=== PATIENT | female | born 1935 | race African-American/Black ===

== ENCOUNTER 2016-11-26 11:59 | Outpatient (CLI) | payer BC ==
[2016-11-26] MEDS ORDERED: NORMAL SALINE 250 ML IV PRN (12:50)
[2016-11-26] MEDS ORDERED: ONDANSETRON HCL/PF 16 MG, DEXAMETHASONE SOD PHOSPHATE 10 MG in NORMAL SALINE 50 ML IV PRN (12:51)
[2016-11-26] MEDS ORDERED: FAMOTIDINE INJ/PF 20 MG/2 ML SDV IV PRN (12:57)
[2016-11-26] MEDS ORDERED: DIPHENHYDRAMINE HCL 50 MG/ML VIAL IV PRN (12:57)
[2016-11-26] MEDS ORDERED: PACLITAXEL SEMI SYNTHETIC IV PRN (13:00)
[2016-11-26] MEDS ORDERED: NORMAL SALINE IV PRN (13:00)
[2016-11-26 14:49] VITALS: BP 119/57
== END 2016-11-26 15:56 | disposition home or self-care (01) ==
LOC: II 11:59 → 5TH 14:28 → II 15:56
PROVIDERS: ATTEND Specialist
PROC: 3E04305 Introduction of Other Antineoplastic into Central Vein, Percutaneous Approach (ICD-10-PCS; principal; 2016-11-26)
PROC: 3E043GC Introduction of Other Therapeutic Substance into Central Vein, Percutaneous Approach (ICD-10-PCS; 2016-11-26)
DX: Z51.11 Encounter for antineoplastic chemotherapy (principal); C34.10 Malignant neoplasm of upper lobe, unspecified bronchus or lung
CPT/HCPCS: 96413; 96367; 96375; J1200; J2405; J7050; J9267; S0028; J1100

== ENCOUNTER 2016-12-03 11:18 | Outpatient (CLI) | payer BC ==
[~2016-12-03 11:18] MED LIST: DIPHENHYDRAMINE HCL 50 MG/ML VIAL IV PRN; FAMOTIDINE INJ/PF 20 MG/2 ML SDV IV PRN; NORMAL SALINE 250 ML IV PRN; NORMAL SALINE IV PRN; ONDANSETRON HCL/PF 16 MG, DEXAMETHASONE SOD PHOSPHATE 10 MG in NORMAL SALINE 50 ML IV PRN; PACLITAXEL SEMI SYNTHETIC IV PRN
[2016-12-03 13:10] VITALS: BP 140/62
== END 2016-12-03 14:47 | disposition home or self-care (01) ==
LOC: II 11:18 → 5TH 11:19 → II 14:47
PROVIDERS: ATTEND Specialist
PROC: 3E03305 Introduction of Other Antineoplastic into Peripheral Vein, Percutaneous Approach (ICD-10-PCS; principal; 2016-12-03)
PROC: 3E033GC Introduction of Other Therapeutic Substance into Peripheral Vein, Percutaneous Approach (ICD-10-PCS; 2016-12-03)
DX: Z51.11 Encounter for antineoplastic chemotherapy (principal); C34.10 Malignant neoplasm of upper lobe, unspecified bronchus or lung
CPT/HCPCS: 96413; 96367; 96375; J1200; J2405; J7050; J9267; S0028; J1100

== ENCOUNTER 2016-12-10 11:56 | Outpatient (CLI) | payer BC ==
[2016-12-10 12:25] VITALS: BP 124/63
== END 2016-12-10 14:12 | disposition home or self-care (01) ==
LOC: II 11:56 → 5TH 11:57 → II 14:12
PROVIDERS: ATTEND Internal Medicine
PROC: 3E03305 Introduction of Other Antineoplastic into Peripheral Vein, Percutaneous Approach (ICD-10-PCS; principal; 2016-12-10)
PROC: 3E033GC Introduction of Other Therapeutic Substance into Peripheral Vein, Percutaneous Approach (ICD-10-PCS; 2016-12-10)
PROC: 3E0337Z Introduction of Electrolytic and Water Balance Substance into Peripheral Vein, Percutaneous Approach (ICD-10-PCS; 2016-12-10)
DX: C34.10 Malignant neoplasm of upper lobe, unspecified bronchus or lung (principal); Z51.11 Encounter for antineoplastic chemotherapy
CPT/HCPCS: 96413; 96367; 96375; 96361; J1200; J2405; J7050; J9267; S0028; J1100; 96376

== ENCOUNTER 2016-12-24 11:11 | Outpatient (CLI) | payer BC ==
[2016-12-24 12:37] VITALS: BP 117/68
== END 2016-12-24 13:21 | disposition home or self-care (01) ==
LOC: II 11:11 → 5TH 11:13 → II 13:21
PROVIDERS: ATTEND Specialist
DX: Z51.11 Encounter for antineoplastic chemotherapy (principal); C34.10 Malignant neoplasm of upper lobe, unspecified bronchus or lung
CPT/HCPCS: 96413; 96367; 96375; J1200; J2405; J7050; J9267; S0028; J1100

== ENCOUNTER 2017-01-20 23:32 | Emergency (ER) | payer BC ==
[2017-01-21] MEDS ORDERED: ONDANSETRON HCL INJ/PF 4 MG/2 ML SDV IV ONE (00:28)
[2017-01-21] MEDS ORDERED: NORMAL SALINE 1000 ML 1,000 ML IV ONE (00:28)
[2017-01-21 01:21] LABS: ALANINE AMINOTRANSFERASE 22 U/L (9-52); ALBUMIN 3.7 g/dL (3.5-5.0); ALKALINE PHOSPHATASE 81 U/L (38-126); ANION GAP 13 (5-19); ASPARTATE AMINO TRANSFERASE 20 U/L (14-36); BILIRUBIN,TOTAL 0.5 mg/dL (0.2-1.3); BLOOD UREA NITROGEN 14 mg/dL (7-20); CALCIUM 9.4 mg/dL (8.4-10.2); CARBON DIOXIDE 31 mmol/L (22-30); CHLORIDE 102 mmol/L (98-107); CREATININE RESULT 1.11 mg/dL (0.52-1.25); GLUCOSE 157 mg/dL (75-110); LIPASE 85.9 U/L (23-300); POTASSIUM 4.1 mmol/L (3.6-5.0); SODIUM 145.7 mmol/L (137-145); TOTAL PROTEIN 7.1 g/dL (6.3-8.2)
[2017-01-21 01:35] LABS: ABSOLUTE LYMPHOCYTES (AUTO) 0.6 10^3/uL (0.5-4.7); ABSOLUTE MONOCYTES (AUTO) 0.5 10^3/uL (0.1-1.4); ABSOLUTE NEUT (AUTO) 3.5 10^3/uL (1.7-8.2); BASOPHILS % (AUTO) 0.8 % (0-2); EOSINOPHILS % (AUTO) 0.5 % (0-6); HEMATOCRIT 34.9 % (36.0-47.0); HEMOGLOBIN 10.2 g/dL (12.0-15.5); HGB HCT DIFFERENCE -4.3; LYMPHOCYTES % (AUTO) 12.7 % (13-45); MEAN CORPUSCULAR HEMOGLOBIN 20.4 pg (27.0-33.4); MEAN CORPUSCULAR HGB CONC 29.2 g/dL (32.0-36.0); MEAN CORPUSCULAR VOLUME 70 fl (80-97); MONOCYTES % (AUTO) 10.6 % (3-13); RED CELL DISTRIBUTION WIDTH 18.7 % (11.5-14.0); SEGMENTED NEUTROPHILS % (AUTO) 75.4 % (42-78); WHITE BLOOD COUNT 4.6 10^3/uL (4.0-10.5)
[2017-01-21] MEDS ORDERED: HYDROCODONE/ACETAMINOPHEN 5-325 MG 6 TAB/DSPK PO PRN (02:14)
[2017-01-21] MEDS ORDERED: HYDROCODONE/ACETAMINOPHEN 5-325 MG TABLET PO ONE (02:14)
[2017-01-21] MEDS ORDERED: MORPHINE SULFATE 10 MG/ML INJ IV PRN (02:15)
--- NOTE | 2017-01-21 02:32 | ER Document Report ---
ED General - General Chief Complaint: Abdominal Pain Stated Complaint: POSSIBLE ALLERGIC REACTION POST CHEMO Notes: Patient is an 81-year-old female with past medical history of stage IV lung cancer on active chemotherapy at this time presents with 6 weeks of progressively worsening abdominal pain, nausea and lack of appetite. Shehas also had nonbilious vomiting. The pain in her abdomen is described as a cramping, dull, aching pain. It has been getting worsens onset. Nothing improves or worsens the pain. States the nausea and vomiting do prevent her from eating. She has been trying Zofran and Phenergan at home with no improvement of her nausea and she has not tried anything for relief of her pain. She has an appointment tomorrow with her oncologist TRAVEL OUTSIDE OF THE [place] IN LAST 30 DAYS: No - Related Data Allergies/Adverse Reactions: iron [Iron] Allergy (Severe, Verified 06/04/16 08:49) DIFFICULTY BREATHING WITH IV IRON metformin Allergy (Unknown, Unverified 11/26/16 12:48) Iodinated Contrast Media - Oral and Allergy (Verified 01/21/17 01:41) carboplatin Adverse Reaction (Unknown, Unverified 11/26/16 12:49) Past Medical History - General Information source: Patient - Social History Smoking Status: Never Smoker Frequency of alcohol use: None Drug Abuse: None Lives with: Family Family History: Reviewed & Not Pertinent Patient has suicidal ideation: No Patient has homicidal ideation: No - Past Medical History Cardiac Medical History: Reports: Hx Hypertension Denies: Hx Coronary Artery Disease, Hx Heart Attack Pulmonary Medical History: Reports: Hx COPD, Hx Pneumonia Denies: Hx Asthma, Hx Bronchitis Neurological Medical History: Denies: Hx Cerebrovascular Accident, Hx Seizures Endocrine Medical History: Reports: Hx Diabetes Mellitus Type 2 Renal/ Medical History: Denies: Hx Peritoneal Dialysis Musculoskeltal Medical History: Reports Hx Arthritis - arms Past Surgical History: Reports: Hx Appendectomy, Hx Gynecologic Surgery - ectopic, Hx Orthopedic Surgery - left handed trigger finger - Immunizations Hx Diphtheria, Pertussis, Tetanus Vaccination: Yes Review of Systems - Review of Systems Notes: Constitutional: Negative for fever. HENT: Negative for sore throat. Eyes: Negative for visual changes. Cardiovascular: Negative for chest pain. Respiratory: Negative for shortness of breath. Gastrointestinal: Positive for abdominal pain nausea and vomiting Genitourinary: Negative for dysuria. Musculoskeletal: Negative for back pain. Skin: Negative for rash. Neurological: Negative for headaches, weakness or numbness. 10 point ROS negative except as marked above and in HPI. Physical Exam - Vital signs Vitals: Pulse Resp BP Pulse Ox 104 H 16 156/76 H 94 01/21/17 00:00 01/21/17 00:00 01/21/17 00:00 01/21/17 00:00 Interpretation: Hypertensive Notes: PHYSICAL EXAMINATION: GENERAL: Chronically ill in appearance but in no acute distress HEAD: Atraumatic, normocephalic. EYES: Pupils equal round and reactive to light, extraocular movements intact, sclera anicteric, conjunctiva are normal. ENT: nares patent, oropharynx clear without exudates. Moderately dry mucous membranes. NECK: Normal range of motion, supple without lymphadenopathy LUNGS: Breath sounds clear to auscultation bilaterally and equal. No wheezes rales or rhonchi. HEART: Regular rate and rhythm without murmurs ABDOMEN: Soft, diffuse mild tenderness worse in the epigastrium, normoactive bowel sounds. No guarding, no rebound. No masses appreciated. EXTREMITIES: Normal range of motion, no pitting or edema. No cyanosis. NEUROLOGICAL: No focal neurological deficits. Moves all extremities spontaneously and on command. PSYCH: Normal mood, normal affect. SKIN: Warm, Dry, normal turgor, no rashes or lesions noted. Course - Re-evaluation Re-evalutation: 01/21/17 02:27 Patient presents with diffuse, progressively worsening abdominal pain over the last 6 weeks has become increasing worse in the last 2 weeks. She is recent start of multiple new chemotherapy agents and I suspect this may be playing into her abdominal pain. She does have diffuse abdominal pain on exam that is most prominent in the epigastrium. CT scan of the abdomen and pelvis obtained given patient's clinical history and unfortunately does demonstrate new, larger lesions in her liver, left kidney and bilateral lungs. I discussed this case with the oncologist regional operations manager Dr. Yeboah and patient will see her oncologist Dr. Brown in the morning. Have discussed the findings of the CT scan with the patient at the bedside at length. I have began symptomatic control here in the emergency department with morphine and will send home with [place] dispense pack. At this time will discharge with return precautions and follow-up recommendations. Verbal discharge instructions given a the bedside and opportunity for questions given. Medication warnings reviewed. Patient is in agreement with this plan and has verbalized understanding of return precautions and the need for oncology follow-up in the morning as scheduled - Vital Signs Vital signs: Temp Pulse Resp BP Pulse Ox 97.4 F 104 H 16 156/76 H 94 01/21/17 00:12 01/21/17 00:00 01/21/17 00:00 01/21/17 00:00 01/21/17 00:00 - Laboratory Result Diagrams: 01/21/17 00:54 01/21/17 00:54 Laboratory results interpreted by me: 01/21/17 01/21/17 00:54 00:54 Hgb 10.2 L Hct 34.9 L MCV 70 L MCH 20.4 L MCHC 29.2 L RDW 18.7 H Lymphocytes % 12.7 L Sodium 145.7 H Carbon Dioxide 31 H Est GFR ( Amer) 57 L Est GFR (Non-Af Amer) 47 L Glucose 157 H - Diagnostic Test Radiology reviewed: Reports reviewed Discharge - Discharge Clinical Impression: Abdominal pain Qualifiers: Abdominal location: generalized Qualified Code(s): R10.84 - Generalized abdominal pain Metastatic primary lung cancer Qualifiers: Laterality: unspecified laterality Qualified Code(s): C34.90 - Malignant neoplasm of unspecified part of unspecified bronchus or lung Condition: Fair Disposition: HOME, SELF-CARE Additional Instructions: Please follow-up with your primary oncologist in the morning as scheduled. You can take the [place] 1-2 tabs as needed for pain. Return for any new or worsening symptoms including persistent vomiting, fever, passing out, or worsening pain.
[2017-01-21] MEDS ORDERED: MORPHINE SULFATE 10 MG/ML INJ IV ONE (02:45)
[2017-01-21] MEDS ORDERED: METOCLOPRAMIDE HCL INJ/PF 10 MG/2 ML SDV IV ONE (02:57)
[2017-01-21 04:45] VITALS: BP 127/57
== END 2017-01-21 04:35 | disposition home or self-care (01) ==
LOC: ER 23:32
DX: R10.84 Generalized abdominal pain (principal); C34.90 Malignant neoplasm of unspecified part of unspecified bronchus or lung; R10.9 Unspecified abdominal pain; R11.0 Nausea; R63.0 Anorexia
CPT/HCPCS: 99284; 96361; 96374; 96375; 36415; 83605; 83690; 85025; 80053; 74176; J2765; J2270; J7030

== ENCOUNTER 2017-01-25 20:32 | Emergency (ER) | payer BC ==
[2017-01-25] MEDS ORDERED: ONDANSETRON 4 MG TAB.RAPDIS PO ONE ×2 (21:08→21:09)
[2017-01-25] MEDS ORDERED: ACETAMINOPHEN 325 MG TABLET PO ONE (21:08)
--- NOTE | 2017-01-25 21:08 | ER Document Report ---
ED Medical Screen (RME) - General Stated Complaint: NAUESA ABDONIMAL PAIN Time seen by provider: 21:05 Mode of Arrival: Wheelchair Information source: Patient Notes: 81-year-old female presents to ED for nausea, vomiting and pain in her abdomen. She states she has stage IV cancer and lung kidney and liver and is on chemotherapy. She received chemotherapy last on and she gets it every . She states she was in the emergency room last Wednesday for similar symptoms. She states she has vomited 2 today. Patient states when she takes the nausea medicine actually makes the pain and the nausea worse. I have greeted and performed a rapid initial assessment of this patient. A comprehensive ED assessment and evaluation of the patient, analysis of test results and completion of medical decision making process will be conducted by an additional ED providers. TRAVEL OUTSIDE OF THE [place] IN LAST 30 DAYS: No - Related Data Allergies/Adverse Reactions: iron [Iron] Allergy (Severe, Verified 06/04/16 08:49) DIFFICULTY BREATHING WITH IV IRON metformin Allergy (Unknown, Unverified 11/26/16 12:48) Iodinated Contrast Media - Oral and Allergy (Verified 01/21/17 01:41) carboplatin Adverse Reaction (Unknown, Unverified 11/26/16 12:49) Past Medical History - Past Medical History Cardiac Medical History: Reports: Hx Hypertension Denies: Hx Coronary Artery Disease, Hx Heart Attack Pulmonary Medical History: Reports: Hx COPD, Hx Pneumonia Denies: Hx Asthma, Hx Bronchitis Neurological Medical History: Denies: Hx Cerebrovascular Accident, Hx Seizures Endocrine Medical History: Reports: Hx Diabetes Mellitus Type 2 Renal/ Medical History: Denies: Hx Peritoneal Dialysis Musculoskeltal Medical History: Reports Hx Arthritis - arms Past Surgical History: Reports: Hx Appendectomy, Hx Gynecologic Surgery - ectopic, Hx Orthopedic Surgery - left handed trigger finger - Immunizations Hx Diphtheria, Pertussis, Tetanus Vaccination: Yes Physical Exam - Vital signs Vitals: Temp Pulse Resp BP Pulse Ox 98.2 F 103 H 20 147/70 H 94 01/25/17 20:56 01/25/17 20:56 01/25/17 20:56 01/25/17 20:56 01/25/17 20:56 Course - Vital Signs Vital signs: Temp Pulse Resp BP Pulse Ox 98.2 F 103 H 20 147/70 H 94 01/25/17 20:56 01/25/17 20:56 01/25/17 20:56 01/25/17 20:56 01/25/17 20:56
[2017-01-25 22:30] LABS: ABSOLUTE LYMPHOCYTES (AUTO) 0.8 10^3/uL (0.5-4.7); ABSOLUTE MONOCYTES (AUTO) 0.6 10^3/uL (0.1-1.4); EOSINOPHILS % (AUTO) 0.5 % (0-6); HEMATOCRIT 35.5 % (36.0-47.0); HEMOGLOBIN 10.6 g/dL (12.0-15.5); HGB HCT DIFFERENCE -3.7; LYMPHOCYTES % (AUTO) 17.7 % (13-45); MEAN CORPUSCULAR HEMOGLOBIN 21.1 pg (27.0-33.4); MEAN CORPUSCULAR VOLUME 70 fl (80-97); MONOCYTES % (AUTO) 12.4 % (3-13); RED BLOOD COUNT 5.05 10^6/uL (3.72-5.28); RED CELL DISTRIBUTION WIDTH 19.1 % (11.5-14.0); SEGMENTED NEUTROPHILS % (AUTO) 68.4 % (42-78); WHITE BLOOD COUNT 4.5 10^3/uL (4.0-10.5)
[2017-01-25 22:54] LABS: ALANINE AMINOTRANSFERASE 24 U/L (9-52); ALBUMIN 3.6 g/dL (3.5-5.0); ALKALINE PHOSPHATASE 79 U/L (38-126); ANION GAP 12 (5-19); ASPARTATE AMINO TRANSFERASE 16 U/L (14-36); BILIRUBIN,DIRECT 0.2 mg/dL (0.0-0.4); BILIRUBIN,TOTAL 0.5 mg/dL (0.2-1.3); BLOOD UREA NITROGEN 12 mg/dL (7-20); CALCIUM 9.7 mg/dL (8.4-10.2); CARBON DIOXIDE 30 mmol/L (22-30); CHLORIDE 100 mmol/L (98-107); CREATININE RESULT 0.82 mg/dL (0.52-1.25); GLUCOSE 143 mg/dL (75-110); POTASSIUM 5.6 mmol/L (3.6-5.0); SODIUM 142.4 mmol/L (137-145); TOTAL PROTEIN 6.3 g/dL (6.3-8.2)
[2017-01-25] MEDS ORDERED: ONDANSETRON HCL INJ/PF 4 MG/2 ML SDV IV ONE (23:01)
[2017-01-25] MEDS ORDERED: NORMAL SALINE 1000 ML 1,000 ML IV ONE (23:01)
[2017-01-26] MEDS ORDERED: FAMOTIDINE INJ/PF 20 MG/2 ML SDV IV ONE (01:34)
[2017-01-26] MEDS ORDERED: FENTANYL CITRATE INJ/PF 100 MCG/2 ML AMPUL IV ONE (01:34)
--- NOTE | 2017-01-26 01:37 | ER Document Report ---
ED General - General Chief Complaint: Nausea/Vomiting Stated Complaint: NAUESA ABDONIMAL PAIN Mode of Arrival: Wheelchair Notes: Patient is an 81-year-old female with stage IV lung cancer metastatic to liver and left kidney who presents with ongoing vomiting and abdominal pain. I saw this patient approximately one week ago with the same symptoms at that time. She has followed up with her oncologist who apparently change the chemotherapy agent that she is taking but the patient states that this has not resolved her abdominal pain and vomiting. She's been trying Zofran and Phenergan at home without improvement. Nothing worsens her symptoms. States she's not really been able to tolerate any food for the past several weeks. Does describe the pain in her abdomen as being a diffuse, mild, cramping pain. She has not had a fever. She continues to have bowel movements. TRAVEL OUTSIDE OF THE [place] IN LAST 30 DAYS: No - Related Data Allergies/Adverse Reactions: iron [Iron] Allergy (Severe, Verified 06/04/16 08:49) DIFFICULTY BREATHING WITH IV IRON metformin Allergy (Unknown, Unverified 11/26/16 12:48) Iodinated Contrast Media - Oral and Allergy (Verified 01/21/17 01:41) carboplatin Adverse Reaction (Unknown, Unverified 11/26/16 12:49) Past Medical History - General Information source: Patient - Social History Smoking Status: Never Smoker Chew tobacco use (# tins/day): No Frequency of alcohol use: None Drug Abuse: None Lives with: Family Family History: Reviewed & Not Pertinent Patient has suicidal ideation: No Patient has homicidal ideation: No - Past Medical History Cardiac Medical History: Reports: Hx Hypertension Denies: Hx Coronary Artery Disease, Hx Heart Attack Pulmonary Medical History: Reports: Hx COPD, Hx Pneumonia Denies: Hx Asthma, Hx Bronchitis Neurological Medical History: Denies: Hx Cerebrovascular Accident, Hx Seizures Endocrine Medical History: Reports: Hx Diabetes Mellitus Type 2 Renal/ Medical History: Denies: Hx Peritoneal Dialysis Musculoskeltal Medical History: Reports Hx Arthritis - arms Past Surgical History: Reports: Hx Appendectomy, Hx Gynecologic Surgery - ectopic, Hx Orthopedic Surgery - left handed trigger finger - Immunizations Hx Diphtheria, Pertussis, Tetanus Vaccination: Yes Review of Systems - Review of Systems Notes: Constitutional: Negative for fever. HENT: Negative for sore throat. Eyes: Negative for visual changes. Cardiovascular: Negative for chest pain. Respiratory: Negative for shortness of breath. Gastrointestinal: Positive for abdominal pain and vomiting. Genitourinary: Negative for dysuria. Musculoskeletal: Negative for back pain. Skin: Negative for rash. Neurological: Negative for headaches, weakness or numbness. 10 point ROS negative except as marked above and in HPI. Physical Exam - Vital signs Vitals: Temp Pulse Resp BP Pulse Ox 98.2 F 103 H 20 147/70 H 94 01/25/17 20:56 01/25/17 20:56 01/25/17 20:56 01/25/17 20:56 01/25/17 20:56 Interpretation: Hypertensive, Tachycardic Notes: PHYSICAL EXAMINATION: GENERAL: Frail, appears uncomfortable but in no acute distress HEAD: Atraumatic, normocephalic. EYES: Pupils equal round and reactive to light, extraocular movements intact, sclera anicteric, conjunctiva are normal. ENT: nares patent, oropharynx clear without exudates. Moderately dry mucous membranes. NECK: Normal range of motion, supple without lymphadenopathy LUNGS: Breath sounds clear to auscultation bilaterally and equal. No wheezes rales or rhonchi. HEART: Regular rate and rhythm without murmurs ABDOMEN: Soft, diffuse mild tenderness without rebound or guarding. Bowel sounds present. EXTREMITIES: Normal range of motion, no pitting or edema. No cyanosis. NEUROLOGICAL: No focal neurological deficits. Moves all extremities spontaneously and on command. PSYCH: Normal mood, normal affect. SKIN: Warm, Dry, normal turgor, no rashes or lesions noted. Course - Re-evaluation Re-evalutation: 01/26/17 02:51 Patient presents with ongoing nausea, vomiting and diffuse abdominal pain in the setting of metastatic lung cancer on chemotherapy. Again I continue to believe that patient's symptoms are likely secondary to her chemotherapy. I continue to have significant concerns about ongoing use of chemotherapeutic agents in this patient who has a very poor prognosis given her age with a stage IV metastatic cancer that is progressing despite chemotherapy. Her abdominal exam today is unchanged from prior and I do not believe repeat CT imaging is indicated today. Her labs are unremarkable with the exception of mild hyperkalemia. I have again provided symptomatic control here today with rectal Phenergan, oral [place], and IV fluids. Have encouraged the family to follow closely with her primary oncologist regarding goals of care as well as consideration of palliative management. - Vital Signs Vital signs: Temp Pulse Resp BP Pulse Ox 98.2 F 103 H 20 147/70 H 94 01/25/17 20:56 01/25/17 20:56 01/25/17 20:56 01/25/17 20:56 01/25/17 20:56 - Laboratory Result Diagrams: 01/25/17 22:10 01/25/17 22:10 Laboratory results interpreted by me: 01/25/17 01/25/17 22:10 22:10 Hgb 10.6 L Hct 35.5 L MCV 70 L MCH 21.1 L MCHC 30.0 L RDW 19.1 H Plt Count 461 H Potassium 5.6 H Glucose 143 H Discharge - Discharge Clinical Impression: Metastatic primary lung cancer Qualifiers: Laterality: unspecified laterality Qualified Code(s): C34.90 - Malignant neoplasm of unspecified part of unspecified bronchus or lung Abdominal pain Qualifiers: Abdominal location: generalized Qualified Code(s): R10.84 - Generalized abdominal pain Condition: Fair Disposition: HOME, SELF-CARE Additional Instructions: Please discuss goals of care with your oncologist. Return for any new or worsening symptoms. Please also follow up for repeat of your potassium level which was mildly elevated today. You can use the [place] that is prescribed today 1-2 tablets every 4 hours as needed for pain. Please also start taking famotidine 40 mg in the morning and 40 mg at night. This should hopefully help to calm your stomach. This medicine can be purchased [id number]. You can use the rectal Phenergan was prescribed today for nausea that is so severe you cannot take oral medicines. Prescriptions: Hydrocodone/Acetaminophen [[place] 5-325 mg Tablet] 1 - 2 tab PO Q4HP PRN #30 tablet PRN Reason: Promethazine HCl [Phenergan 25 mg Supp.rect] 25 mg ID Q4HP PRN #12 supp.rect PRN Reason: Referrals: KELLI RANDLE MD [Primary Care Provider] - Follow up tomorrow
[2017-01-26 03:24] VITALS: BP 122/55
== END 2017-01-26 03:25 | disposition home or self-care (01) ==
LOC: ER 20:32
DX: C34.90 Malignant neoplasm of unspecified part of unspecified bronchus or lung (principal); C78.7 Secondary malignant neoplasm of liver and intrahepatic bile duct; C79.02 Secondary malignant neoplasm of left kidney and renal pelvis; R10.84 Generalized abdominal pain; R11.2 Nausea with vomiting, unspecified; Z79.899 Other long term (current) drug therapy
CPT/HCPCS: 99283; 96361; 96374; 36415; 85025; 80053; S0119; J3010; J2405; J7030; S0028

== ENCOUNTER 2017-02-24 08:36 | Emergency (ER) | payer BC ==
[2017-02-24 10:01] LABS: ABSOLUTE BASOPHILS # (AUTO) 0.1 10^3/uL (0.0-0.2); ABSOLUTE LYMPHOCYTES (AUTO) 0.6 10^3/uL (0.5-4.7); ABSOLUTE MONOCYTES (AUTO) 0.8 10^3/uL (0.1-1.4); ABSOLUTE NEUT (AUTO) 5.6 10^3/uL (1.7-8.2); BASOPHILS % (AUTO) 1.4 % (0-2); EOSINOPHILS % (AUTO) 0.1 % (0-6); HEMATOCRIT 36.6 % (36.0-47.0); HEMOGLOBIN 11.1 g/dL (12.0-15.5); HGB HCT DIFFERENCE -3.3; LYMPHOCYTES % (AUTO) 8.1 % (13-45); MEAN CORPUSCULAR HEMOGLOBIN 21.3 pg (27.0-33.4); MEAN CORPUSCULAR HGB CONC 30.2 g/dL (32.0-36.0); MEAN CORPUSCULAR VOLUME 71 fl (80-97); MONOCYTES % (AUTO) 10.7 % (3-13); RED BLOOD COUNT 5.19 10^6/uL (3.72-5.28); SEGMENTED NEUTROPHILS % (AUTO) 79.7 % (42-78)
[2017-02-24 10:16] LABS: ALANINE AMINOTRANSFERASE 24 U/L (9-52); ALBUMIN 3.9 g/dL (3.5-5.0); ALKALINE PHOSPHATASE 74 U/L (38-126); ANION GAP 15 (5-19); ASPARTATE AMINO TRANSFERASE 15 U/L (14-36); BILIRUBIN,DIRECT 0.5 mg/dL (0.0-0.4); BILIRUBIN,TOTAL 0.9 mg/dL (0.2-1.3); BLOOD UREA NITROGEN 14 mg/dL (7-20); CALCIUM 9.7 mg/dL (8.4-10.2); CARBON DIOXIDE 34 mmol/L (22-30); CHLORIDE 97 mmol/L (98-107); CREATININE RESULT 0.95 mg/dL (0.52-1.25); GLUCOSE 176 mg/dL (75-110); POTASSIUM 4.4 mmol/L (3.6-5.0); TOTAL PROTEIN 6.7 g/dL (6.3-8.2)
--- NOTE | 2017-02-24 11:43 | ER Document Report ---
ED General - General Chief Complaint: Vomiting/Diarrhea Stated Complaint: SORE THROAT Mode of Arrival: Ambulatory Information source: Patient Notes: 81 yr old female hx of metastatic lung ca presents with complaints of coughing and vomiting blood of a few duay duration. pt admits to sob, denies any fevers or chills. TRAVEL OUTSIDE OF THE [place] IN LAST 30 DAYS: No - HPI Onset: Just prior to arrival Onset/Duration: Sudden Quality of pain: Achy Severity: Mild Pain Level: 1 Associated symptoms: Productive cough, Nausea, Vomiting, Other Exacerbated by: Denies Relieved by: Denies Similar symptoms previously: No Recently seen / treated by doctor: No - Related Data Allergies/Adverse Reactions: iron [Iron] Allergy (Severe, Verified 02/24/17 08:46) DIFFICULTY BREATHING WITH IV IRON metformin Allergy (Unknown, Verified 02/24/17 08:46) Iodinated Contrast Media - Oral and Allergy (Verified 02/24/17 08:46) carboplatin Adverse Reaction (Unknown, Verified 02/24/17 08:46) Past Medical History - Social History Smoking Status: Former Smoker Cigarette use (# per day): No Chew tobacco use (# tins/day): No Smoking Education Provided: No Frequency of alcohol use: None Drug Abuse: None Family History: Reviewed & Not Pertinent Patient has suicidal ideation: No Patient has homicidal ideation: No - Past Medical History Cardiac Medical History: Reports: Hx Hypertension Denies: Hx Coronary Artery Disease, Hx Heart Attack Pulmonary Medical History: Reports: Hx COPD, Hx Pneumonia Denies: Hx Asthma, Hx Bronchitis Neurological Medical History: Denies: Hx Cerebrovascular Accident, Hx Seizures Endocrine Medical History: Reports: Hx Diabetes Mellitus Type 2 Renal/ Medical History: Denies: Hx Peritoneal Dialysis Musculoskeltal Medical History: Reports Hx Arthritis - arms Past Surgical History: Reports: Hx Appendectomy, Hx Gynecologic Surgery - ectopic, Hx Orthopedic Surgery - left handed trigger finger - Immunizations Hx Diphtheria, Pertussis, Tetanus Vaccination: No Review of Systems - Review of Systems Notes: REVIEW OF SYSTEMS: CONSTITUTIONAL : Denies fever, chills, or sweats. Denies recent illness. EENT: Denies eye, ear, throat, or mouth pain or symptoms. Denies nasal or sinus congestion or discharge. Denies throat, tongue, or mouth swelling or difficulty swallowing. CARDIOVASCULAR: Denies chest pain. Denies palpitations or racing or irregular heart beat. Denies ankle edema. RESPIRATORY: Admits to coughing blood GASTROINTESTINAL: Admits to vomiting blood GENITOURINARY: Denies difficulty urinating, painful urination, burning, frequency, blood in urine, or discharge. FEMALE GENITOURINARY: Denies vaginal bleeding, heavy or abnormal periods, irregular periods. Denies vaginal discharge or odor. MUSCULOSKELETAL: Denies back or neck pain or stiffness. Denies joint pain or swelling. SKIN: Denies rash, lesions or sores. HEMATOLOGIC : Denies easy bruising or bleeding. LYMPHATIC: Denies swollen, enlarged glands. NEUROLOGICAL: Denies confusion or altered mental status. Denies passing out or loss of consciousness. Denies dizziness or lightheadedness. Denies headache. Denies weakness or paralysis or loss of use of either side. Denies problems with gait or speech. Denies sensory loss, numbness, or tingling. Denies seizures. PSYCHIATRIC: Denies anxiety or stress. Denies depression, suicidal ideation, or homicidal ideation. ALL OTHER SYSTEMS REVIEWED AND NEGATIVE. Dictation was performed using [employer] voice recognition software PHYSICAL EXAMINATION: GENERAL: Well-appearing, well-nourished and in no acute distress. HEAD: Atraumatic, normocephalic. EYES: Pupils equal round and reactive to light, extraocular movements intact, conjunctiva are normal. ENT: Nares patent, oropharynx clear without exudates. Moist mucous membranes. NECK: Normal range of motion, supple without lymphadenopathy LUNGS: Coarse wheezing all throughout HEART: Tachycardic ABDOMEN: Soft, nontender, nondistended abdomen. No guarding, no rebound. No masses appreciated. Female : deferred Musculoskeletal: Normal range of motion, no pitting or edema. No cyanosis. NEUROLOGICAL: Cranial nerves grossly intact. Normal speech, normal gait. Normal sensory, motor exams PSYCH: Normal mood, normal affect. SKIN: Warm, Dry, normal turgor, no rashes or lesions noted. Physical Exam - Vital signs Vitals: Temp Pulse Resp BP Pulse Ox 98.1 F 121 H 20 149/76 H 95 02/24/17 08:46 02/24/17 08:46 02/24/17 08:46 02/24/17 08:46 02/24/17 08:46 Course - Re-evaluation Re-evalutation: 02/24/17 11:43 Chest x-ray notes pulmonary nodule, 04/19/17 13:33 vq was negative, hemoccult was negative , labs otherwise note no signigcant abnormality 02/24/17 13:[address] Brown, she notes that the tachycardia is chronic for the patient therefore i [facility] home to follow up i [facility] office tomorrow After performing a Medical Screening Examination, I estimate there is LOW risk for ACUTE CORONARY SYNDROME, RESPIRATORY FAILURE, SEPSIS OR MENINGITIS, thus I consider the discharge disposition reasonable. I have reevaluated this patient multiple times and no significant life threatening changes are noted. The patient and I have discussed the diagnosis and risks, and we agree with discharging home with close follow-up. We also discussed returning to the Emergency Department immediately if new or worsening symptoms occur. We have discussed the symptoms which are most concerning (e.g., changing or worsening pain, trouble swallowing or breathing, neck stiffness, fever) that necessitate immediate return. - Vital Signs Vital signs: Temp Pulse Resp BP Pulse Ox 98.1 F 118 H 20 149/76 H 95 02/24/17 08:47 02/24/17 08:47 02/24/17 08:47 02/24/17 08:47 02/24/17 08:47 - Laboratory Result Diagrams: 02/24/17 09:40 02/24/17 09:40 Laboratory results interpreted by me: 02/24/17 02/24/17 09:40 09:40 Hgb 11.1 L MCV 71 L MCH 21.3 L MCHC 30.2 L RDW 21.0 H Seg Neutrophils % 79.7 H Lymphocytes % 8.1 L Sodium 146.0 H Chloride 97 L Carbon Dioxide 34 H Est GFR (Non-Af Amer) 56 L Glucose 176 H Direct Bilirubin 0.5 H - Diagnostic Test Radiology reviewed: Image reviewed, Reports reviewed Discharge - Discharge Clinical Impression: Hemoptysis, tachycardic Lung cancer Qualifiers: Laterality: right Lung location: upper lobe of lung Qualified Code(s): C34.11 - Malignant neoplasm of upper lobe, right bronchus or lung Condition: Fair Disposition: HOME, SELF-CARE Instructions: Hemoptysis ([facility]) Referrals: KELLI BROWN MD [Primary Care Provider] - Follow up tomorrow
[2017-02-24] MEDS ORDERED: MORPHINE SULFATE 10 MG/ML INJ IV ONE (13:42)
[2017-02-24] MEDS ORDERED: METOCLOPRAMIDE HCL INJ/PF 10 MG/2 ML SDV IV ONE (13:42)
[2017-02-24 14:07] VITALS: BP 164/83
== END 2017-02-24 14:22 | disposition home or self-care (01) ==
LOC: ER 08:36
DX: C34.11 Malignant neoplasm of upper lobe, right bronchus or lung (principal); R04.2 Hemoptysis; R00.0 Tachycardia, unspecified; R11.10 Vomiting, unspecified; R19.7 Diarrhea, unspecified; Z87.891 Personal history of nicotine dependence; R06.02 Shortness of breath
CPT/HCPCS: 99284; 96374; 96375; 36415; 85025; 82272; 80053; 71010; 78582; A9540; A9567; J2765; J2270; Q9969

== ENCOUNTER → 2017-03-08 | Outpatient (CLI) | payer BC, MEDICARE | LOC: RAD 11:02 | PROVIDERS: ATTEND Specialist | DX: C34.10 Malignant neoplasm of upper lobe, unspecified bronchus or lung (principal) | CPT/HCPCS: 70551 ==

== ENCOUNTER → 2017-03-19 | Outpatient (CLI) | payer BC, MEDICARE | LOC: RAD 13:33 | PROVIDERS: ATTEND Specialist | DX: C34.90 Malignant neoplasm of unspecified part of unspecified bronchus or lung (principal) | CPT/HCPCS: 78815; A9552 ==

== ENCOUNTER → 2017-06-25 | Outpatient (CLI) | payer BC ==
--- NOTE | 2017-06-25 15:01 | RADIOLOGY REPORT (SQ) ---
EXAM DESCRIPTION: CT CHEST WITH; CT ABD/PELVIS WITH IV ONLY COMPLETED DATE/TIME: 06/25/2017 11:14 am REASON FOR STUDY: LUNG CA C34.10 MALIGNANT NEOPLASM OF UPPER LOBE, UNSP BRONCHUS OR JAZLYN COMPARISON: PET-CT 03/19/2017 CT chest 10/16/2016 CT abdomen pelvis 10/16/2016, 01/21/2017 CONTRAST TYPE AND DOSE: contrast/concentration: Isovue 370.00 mg/ml; Total Contrast Delivered: 67.0 ml; Total Saline Delivered: 65.0 ml RENAL FUNCTION: Creatinine 1.0 TECHNIQUE: CT scan of the chest performed using helical scanning technique with dynamic intravenous contrast injection. Images reviewed with lung, soft tissue and bone windows. Reconstructed coronal a nd sagittal MPR images reviewed. All images stored on PACS. CT scan of the abdomen and pelvis performed with intravenous and without oral contrastusing helical s mary technique with dynamic intravenous contrast injection. Images reviewed with lung, soft tissu e and bone windows. Reconstructed coronal and sagittal MPR images reviewed. Delayed images for eval uation of the urinary system also acquired and evaluated. All images stored on PACS. All CT scanners at this facility use dose modulation, iterative reconstruction, and/or weight based d osing when appropriate to reduce radiation dose to as low as reasonably achievable (ALARA). [facility]: Dose Right [facility]: CareDose [facility]: Dose Right [facility]: Teradose 4D [facility]: Smart Technologies RADIATION DOSE: Up-to-date CT equipment and radiation dose reduction techniques were employed. CTDIv ol: 5.1 - 12.6 mGy. DLP: 967 mGy-cm. . LIMITATIONS: None. FINDINGS: CHEST: LUNGS AND PLEURA: Stable volume loss, consolidation, and bronchiectasis in the right upper lobe post radiation therapy, axial images 28-57. Increase in size and number of lung parenchymal nodules compared to 03/19/2017 PET-CT with index lesio ns as follows: Right lower lobe 8 mm nodule axial image 62 (was 5 mm on 03/19/2017) Right lateral lung base 1.8 x 1.8 cm solid nodule (was cavitary, 12 mm in diameter 03/19/2017) Left lower lobe solid nodule 2.6 x 2.1 cm (was cavitary, 2.2 x 2.1 cm on 03/19/2017) Superior segment left lower lobe 13 mm nodule image 57 (new compared to previous HILAR AND MEDIASTINAL STRUCTURES: No identified masses or abnormal nodes. HEART AND VASCULAR STRUCTURES: No aneurysm or dissection. No central pulmonary emboli. No pericardi al effusion. HARDWARE: Left-sided permanent central line tip in the left brachiocephalic vein which is collapsed a round the catheter and likely occluded. THYROID AND OTHER SOFT TISSUES: Stable 5 mm peripherally calcified colloid cyst right lateral aspect midpole thyroid BONES: Very mild upper endplate vertebral body endplate compressions at T3 and T11, new compared to C T chest 10/16/2016 OTHER: No other significant finding. ABDOMEN AND PELVIS: LIVER: Stable hepatic cysts at the falciform ligament axial image 28, 1.5 cm in diameter. Decrease in size of left lobe liver lesion axial image 19, currently 3.1 x 2.6 cm (was 3.3 x 2.7 cm o n 03/19/2017) 2 cm lesion left lobe liver lateral to the falciform ligament, similar accounting for differences in technique compared to PET-CT 03/19/2017. SPLEEN: Normal size. No focal lesions. PANCREAS: No masses. No significant calcifications. No adjacent inflammation or peripancreatic fluid collections. Pancreatic duct not dilated. GALLBLADDER: No identified stones by CT criteria. No inflammatory changes to suggest cholecystitis. ADRENAL GLANDS: No significant masses or asymmetry. RIGHT KIDNEY AND URETER: No solid masses. 1.7 cm right upper pole renal cortical cyst. No significa nt calcification. No hydronephrosis or hydroureter. LEFT KIDNEY AND URETER: Complex cystic and solid lesion left upper pole kidney, 7.2 cm in diameter, s table. No significant calcification. No hydronephrosis or hydroureter. AORTA AND VESSELS: No aneurysm. No dissection. Renal arteries, SMA, celiac without stenosis. RETROPERITONEUM: Stable 2 x 2 cm right retrocrural lymph node, stable 1.3 x 1 cm left retroperitoneal nodule at the level of the left renal vein. 1.5 x 11.5 cm and 2 x 1.6 cm lymph node at the left jarad al hilum, new compared to previous studies. BOWEL AND PERITONEAL CAVITY: No masses or inflammatory changes. No free fluid or peritoneal masses. APPENDIX: Normal. ABDOMINAL WALL: No masses. No hernias. BONES: New T11 mild upper endplate compression deformity PELVIS: No other significant finding. IMPRESSION: Increase in size and number of lung nodules compared to prior exams Stable/slightly decreased size of liver lesions Stable complex left upper pole cystic/solid renal mass Increasing left retroperitoneal lymph nodes adjacent to the left renal artery and vein Interval development of minimal upper endplate compression deformities at T3 and T11 TECHNICAL DOCUMENTATION: JOB ID: [id number] Quality ID # [id number]: Final reports with documentation of one or more dose reduction techniques (e.g., Au tomated exposure control, adjustment of the mA and/or kV according to patient size, use of iterative reconstruction technique) 2010 [email or web address]- All Rights Reserved
== END ==
LOC: RAD 09:35
PROVIDERS: ATTEND Internal Medicine
DX: C34.10 Malignant neoplasm of upper lobe, unspecified bronchus or lung (principal)
CPT/HCPCS: 71260; 74177

== ENCOUNTER 2017-06-30 11:44 | Inpatient (IN) | payer MEDICARE, BC ==
[2017-06-30] MEDS ORDERED: IPRATROPIUM/ALBUTEROL 0.5-2.5 MG/3 ML AMPUL NEB ONE (12:24)
--- NOTE | 2017-06-30 12:29 | ER Document Report ---
ED Respiratory Problem - General TRAVEL OUTSIDE OF THE [place] IN LAST 30 DAYS: No - HPI Patient complains to provider of: Short of breath Duration: Continuous Associated symptoms: Other - see above <JESSIE HUGHES - Last Filed: 06/30/17 12:23> <RENETTA TIPTON - Last Filed: 06/30/17 15:30> - General Chief Complaint: Shortness Of Breath Stated Complaint: DIFFICULTY BREATHING Time Seen by Provider: 06/30/17 12:12 Notes: Patient is an 81 year old female who presents to the ED with complaints of SOB that is wrose with exertion. Patient states she was at home and went to the [facility] so that she could get some help. EMS was called and upon their evaluation patient had wheezes. Patient was given 1 albuterol/atrovent treatment and 125 mg of solumedrol and is improved with that treatment. Patient did not use her nebulizer at home because the medicine is and she ran out of her inhaler. Patient adds that she had hematuria this morning. 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 Resendiz. (JESSIE HUGHES) - Related Data Allergies/Adverse Reactions: iron [Iron] Allergy (Severe, Verified 06/30/17 12:03) DIFFICULTY BREATHING WITH IV IRON metformin Allergy (Unknown, Verified 06/30/17 12:03) Iodinated Contrast- Oral and IV Dye [Iodinated Contrast Media - Oral and] Allergy (Verified 06/30/17 12:03) carboplatin Adverse Reaction (Unknown, Verified 06/30/17 12:03) Home Medications: Current Home Medications Albuterol Sulfate [Albuterol Sulfate 2.5mg/3 mL] 2.5 mg IH PRN PRN 06/30/17 [ History] Past Medical History - General Information source: Patient - Social History Smoking Status: Former Smoker Chew tobacco use (# tins/day): No Frequency of alcohol use: None Drug Abuse: None Family History: Reviewed & Not Pertinent Patient has suicidal ideation: No Patient has homicidal ideation: No - Past Medical History Cardiac Medical History: Reports: Hx Hypertension Pulmonary Medical History: Reports: Hx COPD, Hx Pneumonia Endocrine Medical History: Reports: Hx Diabetes Mellitus Type 2 Renal/ Medical History: Denies: Hx Peritoneal Dialysis Malignancy Medical History: Reports: 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 Musculoskeltal Medical History: Reports Hx Arthritis - arms Past Surgical History: Reports: Hx Appendectomy, Hx Gynecologic Surgery - ectopic, Hx Orthopedic Surgery - left handed trigger finger - Immunizations Hx Diphtheria, Pertussis, Tetanus Vaccination: No <JESSIE HUGHES - Last Filed: 06/30/17 12:23> Review of Systems - Review of Systems Constitutional: No symptoms reported EENT: No symptoms reported Cardiovascular: No symptoms reported Respiratory: See HPI, Short of breath Gastrointestinal: No symptoms reported Genitourinary: See HPI, Hematuria Female Genitourinary: No symptoms reported Musculoskeletal: No symptoms reported Skin: No symptoms reported Hematologic/Lymphatic: No symptoms reported Neurological/Psychological: No symptoms reported <JESSIE HUGHES - Last Filed: 06/30/17 12:23> Physical Exam - General General appearance: Alert - HEENT Head: Normocephalic, Atraumatic Eyes: Normal Extraocular movements intact: Yes Pupils: PERRL - Respiratory Respiratory status: Tachypnea Breath sounds: Rhonchi - diffuse, Wheezing - diffuse - Cardiovascular Rhythm: Regular Heart sounds: Normal auscultation Murmur: No - Abdominal Inspection: Normal - Back Back: Normal - Extremities General upper extremity: Normal inspection, Normal ROM General lower extremity: Normal inspection, Edema - in left ankle area, Normal ROM - Neurological Neuro grossly intact: Yes - Psychological Associated symptoms: Normal affect, Normal mood - Skin Skin Temperature: Warm Skin Moisture: Dry Skin Color: Normal <JESSIE HUGHES - Last Filed: 06/30/17 12:23> - Vital signs Vitals: Resp Pulse Ox 29 H 100 06/30/17 11:53 06/30/17 11:53 Course <JESSIE HUGHES - Last Filed: 06/30/17 12:23> - Laboratory Result Diagrams: 06/30/17 13:05 06/30/17 13:05 - Diagnostic Test Radiology reviewed: Image reviewed, Reports reviewed - Chest x-ray shows the right upper lobe mass without new infiltrate compared to CT scan from 06/25/2017. - EKG Interpretation by [facility] EKG shows normal: Sinus rhythm, [place], Intervals, QRS Complexes, ST-T Waves Rate: Tachycardia - 106 P Waves: DOMO, LAE - Consults Dr. Hendrix Time consulted: 15:30 Consulted provider: will see as inpatient - Admit to [facility]. <RENETTA TIPTON - Last Filed: 06/30/17 15:30> - Re-evaluation Re-evalutation: 06/30/17 15:25 The patient did improve with breathing treatments, however on removing her nasal O2 her O2 saturation dropped to 86% on room air. She is not normally on oxygen at home. (RENETTA TIPTON) - Vital Signs Vital signs: Temp Pulse Resp BP Pulse Ox 97.7 F 105 H 29 H 127/61 H 87 L 06/30/17 12:01 06/30/17 12:01 06/30/17 15:01 06/30/17 15:00 06/30/17 15:01 - Laboratory Laboratory results interpreted by me: 06/30/17 06/30/17 06/30/17 13:05 13:05 13:18 Hgb 9.8 L Hct 33.1 L MCV 68 L MCH 20.2 L MCHC 29.5 L RDW 17.5 H Seg Neutrophils % 80.3 H Lymphocytes % 10.3 L Carbon Dioxide 31 H Glucose 133 H AST 12 L Urine Protein 100 H Urine Blood LARGE H Discharge <JESSIE HUGHES - Last Filed: 06/30/17 12:23> - Discharge Admitting Provider: Hospitalist Unit Admitted: [facility] <RENETTA TIPTON - Last Filed: 06/30/17 15:30> - Discharge Clinical Impression: Acute exacerbation of chronic obstructive pulmonary disease (COPD), Hypoxia Metastatic lung cancer (metastasis from lung to other site) Qualifiers: Laterality: right Qualified Code(s): C34.91 - Malignant neoplasm of unspecified part of right bronchus or lung Hematuria Qualifiers: Hematuria type: gross Qualified Code(s): R31.0 - Gross hematuria Condition: Stable Disposition: ADMITTED INPATIENT Scribe Attestation: 06/30/17 13:22 I personally performed the services described in the documentation, reviewed and edited the documentation which was dictated to the scribe in my presence, and it accurately records my words and actions. (RENETTA TIPTON) Scribe Documentation - Scribe Written by Scribe:: florencia Vivas, 06/30/2017, 1230 acting as scribe for Dr.:: Valerie <JESSIE HUGHES - Last Filed: 06/30/17 12:23>
[2017-06-30 13:18] LABS: ABSOLUTE EOSINOPHILS # (AUTO) 0.3 10^3/uL (0.0-0.6); ABSOLUTE LYMPHOCYTES (AUTO) 0.7 10^3/uL (0.5-4.7); ABSOLUTE MONOCYTES (AUTO) 0.3 10^3/uL (0.1-1.4); ABSOLUTE NEUT (AUTO) 5.1 10^3/uL (1.7-8.2); BASOPHILS % (AUTO) 0.5 % (0-2); EOSINOPHILS % (AUTO) 4.8 % (0-6); HEMATOCRIT 33.1 % (36.0-47.0); HEMOGLOBIN 9.8 g/dL (12.0-15.5); HGB HCT DIFFERENCE -3.7; LYMPHOCYTES % (AUTO) 10.3 % (13-45); MEAN CORPUSCULAR HEMOGLOBIN 20.2 pg (27.0-33.4); MEAN CORPUSCULAR HGB CONC 29.5 g/dL (32.0-36.0); MEAN CORPUSCULAR VOLUME 68 fl (80-97); MONOCYTES % (AUTO) 4.1 % (3-13); RED BLOOD COUNT 4.84 10^6/uL (3.72-5.28); RED CELL DISTRIBUTION WIDTH 17.5 % (11.5-14.0); SEGMENTED NEUTROPHILS % (AUTO) 80.3 % (42-78); WHITE BLOOD COUNT 6.3 10^3/uL (4.0-10.5)
[2017-06-30] MEDS ORDERED: ALBUTEROL SULFATE 0.083% NEB 2.5 MG/3 ML AMPUL NEB ONE (13:22)
--- NOTE | 2017-06-30 13:28 | RADIOLOGY REPORT (SQ) ---
EXAM DESCRIPTION: CHEST SINGLE VIEW COMPLETED DATE/TIME: 06/30/2017 12:49 pm REASON FOR STUDY: COPD exacerbation COMPARISON: CXR -02/24/2017, chest CT 06/25/2017 EXAM PARAMETERS: NUMBER OF VIEWS: One view. TECHNIQUE: Single frontal radiographic view of the chest acquired. RADIATION DOSE: NA LIMITATIONS: None. FINDINGS: LUNGS AND PLEURA: Post treatment changes are noted in the right upper lobe which appear mo re prominent than on previous chest x-ray but are similar to more recent chest CT. The multiple lung nodules seen on recent CT scan are not well visualized on this plain film. No new areas of abnormal density are seen to suggest pneumonia. No effusions are identified. MEDIASTINUM AND HILAR STRUCTURES: No masses. Contour normal. HEART AND VASCULAR STRUCTURES: Heart normal in size. Normal vasculature. BONES: No acute findings. HARDWARE: Left jugular Port-A-Cath with tip at the junction of the brachiocephalic veins. OTHER: No other significant finding. IMPRESSION: 1. Post treatment changes are again noted on the right. The multiple lung nodules seen on recent chest CT are not clearly visualized. No new abnormalities. TECHNICAL DOCUMENTATION: JOB ID: [id number]
[2017-06-30 13:43] LABS: ALANINE AMINOTRANSFERASE 23 U/L (9-52); ALBUMIN 3.7 g/dL (3.5-5.0); ALKALINE PHOSPHATASE 97 U/L (38-126); ANION GAP 9 (5-19); ASPARTATE AMINO TRANSFERASE 12 U/L (14-36); BILIRUBIN,DIRECT 0.4 mg/dL (0.0-0.4); BILIRUBIN,TOTAL 0.5 mg/dL (0.2-1.3); BLOOD UREA NITROGEN 10 mg/dL (7-20); CALCIUM 9.5 mg/dL (8.4-10.2); CARBON DIOXIDE 31 mmol/L (22-30); CHLORIDE 99 mmol/L (98-107); CREATININE RESULT 0.74 mg/dL (0.52-1.25); GLUCOSE 133 mg/dL (75-110); MAGNESIUM 1.9 mg/dL (1.6-2.3); POTASSIUM 4.8 mmol/L (3.6-5.0); SODIUM 139.2 mmol/L (137-145)
[2017-06-30 14:04] LABS: AMORPHOUS SEDIMENT,URINE TRACE /HPF; APPEARANCE,URINE CLOUDY; BILIRUBIN,URINE NEGATIVE (NEGATIVE); GLUCOSE, URINE NEGATIVE (NEGATIVE); KETONES,URINE NEGATIVE (NEGATIVE); LEUKOCYTE ESTERASE,URINE NEGATIVE (NEGATIVE); NITRITE,URINE NEGATIVE (NEGATIVE); PROTEIN,URINE 100 mg/dL (NEGATIVE); URINE SPECIFIC GRAVITY 1.009; UROBILINOGEN,URINE NEGATIVE mg/dL (<2.0)
[2017-06-30] MEDS ORDERED: CEFTRIAXONE 1 GM/D5W RTU 1 GM/50 ML RTUPB IV ONE (15:30)
[2017-06-30] MEDS ORDERED: LEVOFLOXACIN 750 MG/D5W RTU 750 MG/150 ML RTUPB IV ONE (15:30)
[2017-06-30] MEDS ORDERED: LEVALBUTEROL HCL NEB 1.25 MG/3 ML AMPUL NEB PRN (16:15)
[2017-06-30] MEDS ORDERED: ACETAMINOPHEN 325 MG TABLET PO PRN (16:15)
[2017-06-30] MEDS ORDERED: NORMAL SALINE 1000 ML 1,000 ML IV PRN (16:15)
[2017-06-30] MEDS ORDERED: ONDANSETRON HCL INJ/PF 4 MG/2 ML SDV IV PRN (16:15)
[2017-06-30] MEDS ORDERED: IPRATROPIUM/ALBUTEROL 0.5-2.5 MG/3 ML AMPUL NEB PRN (16:30)
[2017-06-30 19:54] LABS: PROTHROMBIN TIME 13.4 SEC (11.4-15.4)
[2017-06-30] MEDS: IPRATROPIUM/ALBUTEROL 0.5-2.5 MG/3 ML AMPUL NEB SCH (20:02)
[2017-06-30] MEDS: METHYLPREDNISOLONE INJ 125 MG/2 ML SDV IV SCH (21:27)
[2017-06-30] MEDS: FAMOTIDINE 20 MG TABLET PO SCH (21:27)
--- NOTE | 2017-06-30 22:17 | HISTORY AND PHYSICAL E ---
History and Physical NAME: RADHA PATTERSON : 1935 AGE: 81Y ADMITTED: 06/30/2017 ROOM: 317 CHIEF COMPLAINT: Shortness of breath. HISTORY OF PRESENT ILLNESS: The patient is an 81-year-old -[place] female with a known history of widely metastatic lung cancer, who presented to the emergency department with increasing shortness of breath. The patient reports that she has had shortness of breath for several months, but today it just became more acutely worse and she also noticed a very significant amount of blood in her urine today when going to the bathroom. The patient reports a cough but that this is not productive. She reports that she has been chilled but not having overt chills and denies a fever. She denies any chest pain and denies back pain at this time. The patient was given Solu-Medrol by EMS as well as nebulized treatments with improvement of her symptomatology, and currently the patient reports that she is slightly improved, but she is still quite hypoxic in the emergency department. PAST MEDICAL HISTORY: The patient reports a past medical history significant only for lung cancer. PAST SURGICAL HISTORY: She reports history for: 1. An ectopic . 2. Appendectomy. 3. Tonsillectomy. 4. Bilateral carpal tunnel surgery. 5. Cataract surgery. SOCIAL HISTORY: The patient is a former smoker. She quit approximately 10 years ago. Denies alcohol. Denies illicit drugs. FAMILY HISTORY: Unknown. She reports she did not grow up with her family. CODE STATUS: The patient is a DNR, and her children Jaime and Cindy are her surrogate decision makers. ALLERGIES: The patient's allergies are listed as: 1. IV IRON. 2. METFORMIN. 3. ORAL AND IV DYE. 4. CARBOPLATIN. MEDICATIONS: The patient's home medications include: 1. Ferrous sulfate. 2. ProAir. REVIEW OF SYSTEMS: CONSTITUTIONAL: She denies overt fevers or chills. Admits to some weight loss. Denies weight gain. Denies anorexia. HEENT: Denies visual disturbance, headache, hearing loss. RESPIRATORY: Admits to dyspnea and cough. Denies current hemoptysis or pleurisy. CARDIAC: Denies chest pain, PND, orthopnea, edema. ABDOMEN: Denies abdominal pain, nausea, vomiting, diarrhea, constipation, hematemesis, melena, hematochezia. GENITOURINARY: Admits to hematuria. Denies dysuria, urgency, or frequency. SKIN: Denies rashes or wounds. MUSCULOSKELETAL: Denies joint pain or swelling. NEUROLOGY: Denies weakness, numbness, dizziness, dysphagia, dysarthria, ataxia. ENDOCRINE: Denies polydipsia, polyuria, hot or cold intolerance. PSYCHIATRIC: Denies depression, anxiety, hallucinations, or delusion. HEMATOLOGIC: Denies easy bleeding or bruising. PHYSICAL EXAMINATION: GENERAL: The patient is a well-fed, well-nourished, older than stated age appearing -[place] female who is in mild respiratory distress. VITAL SIGNS: Her temperature is 97.7. Her pulse is 105. Blood pressure 139/76. Respiratory rate of 25. Saturation of 99 on 2 liters nasal cannula. HEENT: She is normocephalic. She has no icterus. Her conjunctivae are clear. Her extraocular eye movements are intact. Her pupils are equal, round, reactive to light and accommodation. She has slightly dry mucous membranes. NECK: Trachea is midline. She has no thyromegaly. RESPIRATORY: Reveals wheezes and rhonchi bilaterally. CARDIOVASCULAR: Tachycardic but regular with no rub or gallop. She does have a significant systolic murmur. ABDOMEN: Soft and nontender to palpation, nondistended with active bowel sounds. She has no rebound, rigidity, or guarding. She has a negative Landeros's sign. RECTAL: Deferred. GENITOURINARY: Deferred. EXTREMITIES: Reveal no cyanosis, edema. The patient does have some mild clubbing. MUSCULOSKELETAL: Reveals no joint swelling or deformity. VASCULAR: Reveals normal peripheral pulses. NEUROLOGIC: She is alert and oriented to person, place, and time. Her speech is normal. Her cranial nerves are grossly intact. Strength is equal in the upper and lower extremities, and tactile sensation is present in all extremities. SKIN: Reveals no rashes, wounds, or worrisome skin lesions. PSYCHIATRIC: Reveals normal mood and affect. DIAGNOSTIC DATA: Laboratory values are as follows: Sodium of 139, potassium of 4.8, chloride of 99, CO2 of 31, BUN of 10 and creatinine of 0.74, glucose of 133, calcium of 9.5, total bilirubin 0.5, direct of 0.4, magnesium of 1.9, AST of 12, ALT of 23, alkaline phosphatase of 97, total protein of 7, albumin of 3.7. White count of 6.3, hemoglobin of 9.8, hematocrit of 33.1 with an MCV of 68 and platelets of 425,000. Chest x-ray done in the emergency department reveals post-treatment changes on the right. Multiple lung nodules seen on recent chest CT are not clearly visualized, with no new abnormalities, and review of patient's prior record including her CT of the chest, abdomen, and pelvis from 06/25/2017 reveals increase in the number and size of lung nodules compared to prior exams, stable to slightly decreased size of liver lesions and a stable complex left upper pole solid renal mass and increasing left retroperitoneal lymph nodes adjacent to the left renal artery and vein and interval development of an endplate compression deformity at T11 and T3. IMPRESSION: This is an 81-year-old -[place] female with: 1. Acute hypoxemic respiratory failure secondary to COPD exacerbation. 2. COPD exacerbation. 3. Widely metastatic lung cancer. 4. Hematuria, likely secondary to metastatic lesion of the kidney. 5. Iron-deficiency anemia. PLAN: 1. For patient's COPD exacerbation, I will place her on Solu-Medrol and Levaquin. We will obtain sputum if it is provided for us. Continue scheduled nebulized treatments and also p.r.n. nebulized treatments. We will gently hydrate patient. 2. For her hematuria, we will obtain an ultrasound of her kidney. At this time, I have asked to repeat her CAT scan, and the patient declined. She reports she does not want another CAT scan right now. The patient also has a listed allergy to IV dye. We will obtain this with Doppler to assess if see if patient's mass is eroding into her renal artery. 3. For her anemia, we will type and screen patient, and she reports that she is amenable to blood transfusion if needed. 4. For her DVT prophylaxis, we will hold on any DVT prophylaxis due to the active bleeding. 5. For her lung cancer, we will consult her oncologist, Dr. Anderson. 6. For her code status, she is a DNR, and her children are her surrogate decision makers. TIME SPENT: Total time spent with patient including physical examination, coordination of care, and discussion with the patient was 50 minutes of time. DICTATING PHYSICIAN: HONEY WARD M.D. [id number] PHY#: [id number] ID: [id number] JOB#: [id number] ACCT: [id number] cc:HONEY WARD M.D. >
--- NOTE | 2017-06-30 22:58 | RADIOLOGY REPORT (SQ) ---
EXAM DESCRIPTION: U/S RETROPERITON (RENAL/AORTA) COMPLETED DATE/TIME: 06/30/2017 9:04 pm REASON FOR STUDY: hematuria, left renal ,mass COMPARISON: None. TECHNIQUE: Dynamic and static grayscale images acquired of the kidneys and bladder and recorded on P ACS. Additional selected color Doppler and spectral images recorded. LIMITATIONS: None. FINDINGS: RIGHT KIDNEY: Normal size. Normal echogenicity. 16 mm lower pole cyst. No solid or suspi cious masses. No hydronephrosis. No calcifications. LEFT KIDNEY: Normal size. 7 cm upper pole solid mass. No hydronephrosis. No calcifications. BLADDER: No masses. OTHER FINDINGS: No other significant finding. IMPRESSION: 7 cm left renal upper pole mass. No evidence for urinary obstruction. TECHNICAL DOCUMENTATION: JOB ID: [id number] [email or web address]- All Rights Reserved
[2017-07-01 04:46] LABS: ABSOLUTE LYMPHOCYTES (AUTO) 0.4 10^3/uL (0.5-4.7); ABSOLUTE MONOCYTES (AUTO) 0.1 10^3/uL (0.1-1.4); ABSOLUTE NEUT (AUTO) 5.5 10^3/uL (1.7-8.2); BASOPHILS % (AUTO) 0.2 % (0-2); HEMATOCRIT 32.4 % (36.0-47.0); HEMOGLOBIN 9.5 g/dL (12.0-15.5); HGB HCT DIFFERENCE -3.9; LYMPHOCYTES % (AUTO) 6.6 % (13-45); MEAN CORPUSCULAR HEMOGLOBIN 19.8 pg (27.0-33.4); MEAN CORPUSCULAR HGB CONC 29.4 g/dL (32.0-36.0); MEAN CORPUSCULAR VOLUME 67 fl (80-97); MONOCYTES % (AUTO) 1.7 % (3-13); RED BLOOD COUNT 4.81 10^6/uL (3.72-5.28); RED CELL DISTRIBUTION WIDTH 17.5 % (11.5-14.0); SEGMENTED NEUTROPHILS % (AUTO) 91.5 % (42-78)
[2017-07-01 04:55] LABS: PROTHROMBIN TIME 14.6 SEC (11.4-15.4)
[2017-07-01 05:07] LABS: ANION GAP 11 (5-19); BLOOD UREA NITROGEN 15 mg/dL (7-20); CALCIUM 9.4 mg/dL (8.4-10.2); CARBON DIOXIDE 26 mmol/L (22-30); CHLORIDE 103 mmol/L (98-107); CREATININE RESULT 0.73 mg/dL (0.52-1.25); GLUCOSE 240 mg/dL (75-110); POTASSIUM 5.1 mmol/L (3.6-5.0); SODIUM 139.6 mmol/L (137-145)
[2017-07-01] MEDS: METHYLPREDNISOLONE INJ 125 MG/2 ML SDV IV SCH ×3 (05:10→21:12)
--- NOTE | 2017-07-01 08:26 | PDOC CONSULTATION ---
Consultation Consult Date: 07/01/17 Attending physician:: HONEY WARD Consult reason:: COPD exacerbation, stage IV lung ca History of Present Illness Admission Date/PCP: 06/30/17 16:15 Patient complains of: Inc SOB, weakness History of Present Illness: RADHA PATTERSON is a 81 year old female w/ known hx of stage IV lung ca well known to our clinic, has been on OPDIVO thus far, recently had CT C/A/P for restaging , overall per my view of imaging has had stable dx, had dx in chest and abd ( see CT read for full details). She presents w/ 2-3 wk hx of increasing SOB, only had alb nebs at home, never on home o2, here o2 sat 86% on RA in ED, admitted for rx for COPD exacerbation. 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 Musculoskeltal Medical History: Reports: Arthritis - arms Hematology: Reports: Anemia Past Surgical History Past Surgical History: Reports: Appendectomy, Orthopedic Surgery - left handed trigger finger Social History Smoking Status: Former Smoker Last Time Smoked: 2006 Frequency of Alcohol Use: None Hx Recreational Drug Use: No Hx Prescription Drug Abuse: No - Advance Directive Resuscitation Status: Do Not Resuscitate Family History Family History: Reviewed & Not Pertinent Parental Family History Reviewed: Yes Children Family History Reviewed: Yes Sibling(s) Family History Reviewed.: Yes Medication/Allergy Home Medications: Albuterol Sulfate [Albuterol Sulfate 2.5mg/3 mL] 2.5 mg IH Q4HP PRN 06/30/17 Albuterol Sulfate [Proair HFA] 1 puff IH Q4HP PRN 06/30/17 Ferrous Sulfate [Feosol] 325 mg PO TID 06/30/17 Allergies/Adverse Reactions: iron [Iron] Allergy (Severe, Verified 06/30/17 12:03) DIFFICULTY BREATHING WITH IV IRON Iodinated Contrast- Oral and IV Dye [Iodinated Contrast Media - Oral and] Adverse Reaction (Mild, Verified 06/30/17 19:10) metformin Adverse Reaction (Mild, Verified 06/30/17 19:10) carboplatin Adverse Reaction (Unknown, Verified 06/30/17 12:03) Review of Systems Constitutional: ABSENT: chills, fever(s), headache(s), weight gain, weight loss Eyes: ABSENT: visual disturbances Ears: ABSENT: hearing changes Cardiovascular: ABSENT: chest pain, dyspnea on exertion, edema, orthropnea, palpitations Respiratory: ABSENT: cough, hemoptysis Gastrointestinal: ABSENT: abdominal pain, constipation, diarrhea, hematemesis, hematochezia, nausea, vomiting Genitourinary: ABSENT: dysuria, hematuria Musculoskeletal: ABSENT: joint swelling Integumentary: ABSENT: rash, wounds Neurological: ABSENT: abnormal gait, abnormal speech, confusion, dizziness, focal weakness, syncope Psychiatric: ABSENT: anxiety, depression, homidical ideation, suicidal ideation Endocrine: ABSENT: cold intolerance, heat intolerance, polydipsia, polyuria Hematologic/Lymphatic: ABSENT: easy bleeding, easy bruising Physical Exam Vital Signs: Temp Pulse Resp BP Pulse Ox 97.7 F 99 28 H 133/74 H 95 07/01/17 04:22 07/01/17 04:22 07/01/17 04:22 07/01/17 04:22 07/01/17 04:22 Intake & Output 06/30/17 07/01/17 07/02/17 06:59 06:59 06:59 Intake Total 866 Balance 866 Weight 61.3 kg General appearance: PRESENT: no acute distress, well-developed, well-nourished Head exam: PRESENT: atraumatic, normocephalic Eye exam: PRESENT: conjunctiva pink, EOMI, PERRLA. ABSENT: scleral icterus Ear exam: PRESENT: normal external ear exam Mouth exam: PRESENT: moist, tongue midline Neck exam: ABSENT: carotid bruit, JVD, lymphadenopathy, thyromegaly Respiratory exam: PRESENT: clear to auscultation eloisa. ABSENT: rales, rhonchi, wheezes Cardiovascular exam: PRESENT: RRR. ABSENT: diastolic murmur, rubs, systolic murmur Pulses: PRESENT: normal dorsalis pedis pul Vascular exam: PRESENT: normal capillary refill GI/Abdominal exam: PRESENT: normal bowel sounds, soft. ABSENT: distended, guarding, mass, organolmegaly, rebound, tenderness Rectal exam: PRESENT: deferred Extremities exam: PRESENT: full ROM. ABSENT: calf tenderness, clubbing, pedal edema Neurological exam: PRESENT: alert, awake, oriented to person, oriented to place , oriented to time, oriented to situation, CN II-XII grossly intact. ABSENT: motor sensory deficit Psychiatric exam: PRESENT: appropriate affect, normal mood. ABSENT: homicidal ideation, suicidal ideation Skin exam: PRESENT: dry, intact, warm. ABSENT: cyanosis, rash Results Laboratory Results: 07/01/17 04:33 07/01/17 04:33 06/30/17 07/01/17 07/01/17 19:20 04:33 04:33 WBC 6.0 RBC 4.81 Hgb 9.5 L Hct 32.4 L MCV 67 L MCH 19.8 L MCHC 29.4 L RDW 17.5 H Plt Count 387 Seg Neutrophils % 91.5 H Lymphocytes % 6.6 L Monocytes % 1.7 L Eosinophils % 0.0 Basophils % 0.2 Absolute Neutrophils 5.5 Absolute Lymphocytes 0.4 L Absolute Monocytes 0.1 Absolute Eosinophils 0.0 Absolute Basophils 0.0 Sodium 139.6 Potassium 5.1 H Chloride 103 Carbon Dioxide 26 Anion Gap 11 BUN 15 Creatinine 0.73 Est GFR ( Amer) > 60 Est GFR (Non-Af Amer) > 60 Glucose 240 H Calcium 9.4 Blood Type AB POSITIVE Antibody Screen NEGATIVE Impressions: Renal Ultrasound 06/30/17 00:00 IMPRESSION: 7 cm left renal upper pole mass. No evidence for urinary obstruction. Chest X-Ray 06/30/17 12:25 IMPRESSION: 1. Post treatment changes are again noted on the right. The multiple lung nodules seen on recent chest CT are not clearly visualized. No new abnormalities. Assessment & Plan - Diagnosis (1) Metastatic lung cancer (metastasis from lung to other site) Qualifiers: Laterality: right Qualified Code(s): C34.91 - Malignant neoplasm of unspecified part of right bronchus or lung Is this a current diagnosis for this admission?: Yes Plan: Had long discussion about lung cancer dx and CT results, believe it is overall stable, she will hold immunotherapy (OPDIVO) until steroids have been tapered off. We will see 2 wk post discharge to restart tx as appropriate. - Time Time Spent: Greater than 70 Minutes Critical Time spent with patient: 35 or more minutes - Inpatient Certification Based on my medical assessment, after consideration of the patient's comorbidities, presenting symptoms, or acuity I expect that the services needed warrant INPATIENT care.: Yes I certify that my determination is in accordance with my understanding of Medicare's requirements for reasonable and necessary INPATIENT services [42 CFR 412.3e].: Yes Medical Necessity: Need For Continuous Telemetry Monitoring, Other - IV steroids
[2017-07-01] MEDS: IPRATROPIUM/ALBUTEROL 0.5-2.5 MG/3 ML AMPUL NEB SCH ×4 (08:31→20:02)
[2017-07-01] MEDS: LEVOFLOXACIN 500 MG/D5W RTU 500 MG/100 ML RTUPB IV SCH (09:19)
[2017-07-01] MEDS: FAMOTIDINE 20 MG TABLET PO SCH ×2 (09:20→21:12)
[2017-07-01] MEDS: FERROUS SULFATE 325 MG TABLET PO SCH ×3 (09:21→17:45)
[2017-07-01] MEDS ORDERED: LEVOFLOXACIN 750 MG/D5W RTU 750 MG/150 ML RTUPB IV SCH (10:00)
[2017-07-01] MEDS ORDERED: HYDROCODONE BIT/HOMATROPINE 5-1.5 MG TABLET PO PRN (11:07)
[2017-07-01] MEDS ORDERED: PHARMACY COMMUNICATION ORDER MC NR (11:15)
[2017-07-01] MEDS ORDERED: ONDANSETRON HCL INJ/PF 4 MG/2 ML SDV IV PRN (11:30)
--- NOTE | 2017-07-01 17:33 | PDOC PROGRESS REPORT ---
Subjective Progress Note for:: 07/01/17 Subjective:: Patient reports she is feeling significantly better today than yesterday. She is not yet back to baseline. She reports she was able to walk about 300 feet today. Patient denies chest pain, abdominal pain, nausea, vomiting, fevers, chills, diarrhea, constipation, headache, new onset weakness. Physical Exam Vital Signs: Temp Pulse Resp BP Pulse Ox 97.9 F 110 H 12 142/76 H 98 07/01/17 07:27 07/01/17 08:31 07/01/17 08:31 07/01/17 07:27 07/01/17 08:31 Intake & Output 06/30/17 07/01/17 07/02/17 06:59 06:59 06:59 Intake Total 866 Balance 866 Weight 61.3 kg Exam: General: Awake alert and oriented x3, no acute respiratory distress HEENT: AT/NC, PERRL, EOMI, oropharynx is moist, pink, no scleral icterus, no conjunctival injection, poor dentition Neck: No JVD, trachea midline Chest: rare rhonchi, no wheeze, prolonged expiratory phase CV: Regular rate and rhythm, normal S1 and S2, no rub or gallop; +3/6 SM apex Abdomen: Soft, nontender to palpation, nondistended, active bowel sounds; no rebound, rigidity, or guarding Extremities: No cyanosis or edema; mild clubbing Neuro: Cranial nerves II through XII are grossly intact without focal deficits; awake alert and oriented x3 Psych: Normal mood and affect Results Laboratory Results: 07/01/17 04:33 07/01/17 04:33 06/30/17 07/01/17 07/01/17 19:20 04:33 04:33 WBC 6.0 RBC 4.81 Hgb 9.5 L Hct 32.4 L MCV 67 L MCH 19.8 L MCHC 29.4 L RDW 17.5 H Plt Count 387 Seg Neutrophils % 91.5 H Lymphocytes % 6.6 L Monocytes % 1.7 L Eosinophils % 0.0 Basophils % 0.2 Absolute Neutrophils 5.5 Absolute Lymphocytes 0.4 L Absolute Monocytes 0.1 Absolute Eosinophils 0.0 Absolute Basophils 0.0 Sodium 139.6 Potassium 5.1 H Chloride 103 Carbon Dioxide 26 Anion Gap 11 BUN 15 Creatinine 0.73 Est GFR ( Amer) > 60 Est GFR (Non-Af Amer) > 60 Glucose 240 H Calcium 9.4 Blood Type AB POSITIVE Antibody Screen NEGATIVE Impressions: Renal Ultrasound 06/30/17 00:00 IMPRESSION: 7 cm left renal upper pole mass. No evidence for urinary obstruction. Chest X-Ray 06/30/17 12:25 IMPRESSION: 1. Post treatment changes are again noted on the right. The multiple lung nodules seen on recent chest CT are not clearly visualized. No new abnormalities. Assessment & Plan - Diagnosis (1) Acute on chronic respiratory failure with hypoxemia Is this a current diagnosis for this admission?: Yes Plan: Continue oxygen to maintain saturation >93% May need home O2 (2) Acute exacerbation of chronic obstructive pulmonary disease (COPD) Is this a current diagnosis for this admission?: Yes Plan: Decrease solumedrol Continue scheduled nebulized treatments (3) Hematuria Qualifiers: Hematuria type: gross Qualified Code(s): R31.0 - Gross hematuria Is this a current diagnosis for this admission?: Yes Plan: Patient reports no further hematuria. This is likely secondary to her known kidney metastasis. Currently pending culture (4) Metastatic lung cancer (metastasis from lung to other site) Qualifiers: Laterality: right Qualified Code(s): C34.91 - Malignant neoplasm of unspecified part of right bronchus or lung Is this a current diagnosis for this admission?: Yes Plan: Appreciate input from her oncologist - Time Time Spent with patient: 25-34 minutes Medications reviewed and adjusted accordingly: Yes Anticipated discharge: Home Within: within 48 hours - Inpatient Certification Based on my medical assessment, after consideration of the patient's comorbidities, presenting symptoms, or acuity I expect that the services needed warrant INPATIENT care.: Yes I certify that my determination is in accordance with my understanding of Medicare's requirements for reasonable and necessary INPATIENT services [42 CFR 412.3e].: Yes Medical Necessity: Need for Nebulizer Therapy and Monitoring of Response Post Hospital Care: D/C Belt Maker Helper Documentation
--- NOTE | 2017-07-01 21:31 | EKG REPORT ---
SEVERITY:- ABNORMAL ECG - SINUS TACHYCARDIA BIATRIAL ABNORMALITIES : Confirmed by: Jenn Sanchez 01-Jul-2017 21:30:05
[2017-07-02] MEDS ORDERED: DIPHENHYDRAMINE HCL 25 MG CAPSULE PO PRN (05:00)
[2017-07-02] MEDS ORDERED: ACETAMINOPHEN 325 MG TABLET PO PRN (05:00)
[2017-07-02] MEDS: METHYLPREDNISOLONE INJ 125 MG/2 ML SDV IV SCH (05:09)
[2017-07-02 05:57] LABS: HEMATOCRIT 29.1 % (36.0-47.0); HEMOGLOBIN 8.8 g/dL (12.0-15.5); HGB HCT DIFFERENCE -2.7; MEAN CORPUSCULAR HGB CONC 30.2 g/dL (32.0-36.0); MEAN CORPUSCULAR VOLUME 66 fl (80-97); RED CELL DISTRIBUTION WIDTH 17.5 % (11.5-14.0); WHITE BLOOD COUNT 9.9 10^3/uL (4.0-10.5)
[2017-07-02 06:08] LABS: ANION GAP 8 (5-19); BLOOD UREA NITROGEN 25 mg/dL (7-20); CALCIUM 9.4 mg/dL (8.4-10.2); CARBON DIOXIDE 28 mmol/L (22-30); CHLORIDE 104 mmol/L (98-107); CREATININE RESULT 0.91 mg/dL (0.52-1.25); GLUCOSE 300 mg/dL (75-110); POTASSIUM 5.3 mmol/L (3.6-5.0); SODIUM 140.4 mmol/L (137-145)
[2017-07-02 06:31] LABS: BAND NEUTROPHILS % (MANUAL) 1 % (3-5); BASOPHILS % (MANUAL) 0 % (0-2); EOSINOPHILS % (MANUAL) 0 % (0-6); LYMPHOCYTES % (MANUAL) 4 % (13-45); TOTAL CELLS COUNTED 100
[2017-07-02 06:37] LABS: POLYCHROMASIA SLIGHT; TOXIC GRANULATION 1+
[2017-07-02 06:38] LABS: ANISOCYTOSIS 1+; BURR CELLS SLIGHT; MICROCYTOSIS 2+; OVALOCYTES SLIGHT; POIKILOCYTOSIS SLIGHT; SCHISTOCYTES SLIGHT; TEAR DROP CELLS SLIGHT
[2017-07-02] MEDS: IPRATROPIUM/ALBUTEROL 0.5-2.5 MG/3 ML AMPUL NEB SCH ×4 (07:44→20:12)
--- NOTE | 2017-07-02 08:33 | PDOC PROGRESS REPORT ---
Subjective Progress Note for:: 07/02/17 Subjective:: Pt doing better today, she will require 2 L home o2. Physical Exam Vital Signs: Temp Pulse Resp BP Pulse Ox 97.9 F 91 18 141/72 H 96 07/02/17 03:25 07/02/17 07:00 07/02/17 03:25 07/02/17 03:25 07/02/17 03:25 Intake & Output 07/01/17 07/02/17 07/03/17 06:59 06:59 06:59 Intake Total 866 1580 Balance 866 1580 Weight 61.3 kg 62 kg General appearance: PRESENT: no acute distress, well-developed, well-nourished Head exam: PRESENT: atraumatic, normocephalic Eye exam: PRESENT: conjunctiva pink, EOMI, PERRLA. ABSENT: scleral icterus Ear exam: PRESENT: normal external ear exam Mouth exam: PRESENT: moist, tongue midline Neck exam: ABSENT: carotid bruit, JVD, lymphadenopathy, thyromegaly Respiratory exam: PRESENT: clear to auscultation eloisa. ABSENT: rales, rhonchi, wheezes Cardiovascular exam: PRESENT: RRR. ABSENT: diastolic murmur, rubs, systolic murmur Pulses: PRESENT: normal dorsalis pedis pul Vascular exam: PRESENT: normal capillary refill GI/Abdominal exam: PRESENT: normal bowel sounds, soft. ABSENT: distended, guarding, mass, organolmegaly, rebound, tenderness Rectal exam: PRESENT: deferred Extremities exam: PRESENT: full ROM. ABSENT: calf tenderness, clubbing, pedal edema Neurological exam: PRESENT: alert, awake, oriented to person, oriented to place , oriented to time, oriented to situation, CN II-XII grossly intact. ABSENT: motor sensory deficit Psychiatric exam: PRESENT: appropriate affect, normal mood. ABSENT: homicidal ideation, suicidal ideation Skin exam: PRESENT: dry, intact, warm. ABSENT: cyanosis, rash Results Laboratory Results: 07/02/17 05:05 07/02/17 05:05 06/30/17 07/02/17 07/02/17 19:20 05:05 05:05 WBC 9.9 RBC 4.40 Hgb 8.8 L Hct 29.1 L MCV 66 L MCH 20.0 L MCHC 30.2 L RDW 17.5 H Plt Count 371 Seg Neutrophils % Not Reportable Lymphocytes % Not Reportable Monocytes % Not Reportable Eosinophils % Not Reportable Basophils % Not Reportable Absolute Neutrophils Not Reportable Absolute Lymphocytes Not Reportable Absolute Monocytes Not Reportable Absolute Eosinophils Not Reportable Absolute Basophils Not Reportable Sodium 140.4 Potassium 5.3 H Chloride 104 Carbon Dioxide 28 Anion Gap 8 BUN 25 H Creatinine 0.91 Est GFR ( Amer) > 60 Est GFR (Non-Af Amer) 59 L Glucose 300 H Calcium 9.4 Blood Type AB POSITIVE Antibody Screen NEGATIVE Impressions: Renal Ultrasound 06/30/17 00:00 IMPRESSION: 7 cm left renal upper pole mass. No evidence for urinary obstruction. Chest X-Ray 06/30/17 12:25 IMPRESSION: 1. Post treatment changes are again noted on the right. The multiple lung nodules seen on recent chest CT are not clearly visualized. No new abnormalities. Assessment & Plan - Diagnosis (1) Metastatic lung cancer (metastasis from lung to other site) Qualifiers: Laterality: right Qualified Code(s): C34.91 - Malignant neoplasm of unspecified part of right bronchus or lung Is this a current diagnosis for this admission?: Yes Plan: Will plan cont rx as outpt, pt has f/u next week with us (2) Anemia, blood loss Is this a current diagnosis for this admission?: Yes Plan: Iron def and blood loss, will give 1 unit prbc b/c pt is allergic to IV iron. Will premed. Pt is symptomatic so will need.
[2017-07-02] MEDS ORDERED: SODIUM POLYSTYRENE SULFONATE 15 GM/60 ML PO ONE (09:22)
[2017-07-02] MEDS: FAMOTIDINE 20 MG TABLET PO SCH ×2 (10:31→21:09)
[2017-07-02] MEDS: LEVOFLOXACIN 500 MG/D5W RTU 500 MG/100 ML RTUPB IV SCH (10:31)
[2017-07-02] MEDS: FERROUS SULFATE 325 MG TABLET PO SCH ×3 (10:32→17:11)
[2017-07-02] MEDS: PREDNISONE 20 MG TABLET PO SCH ×2 (11:23→17:11)
--- NOTE | 2017-07-02 14:38 | PDOC PROGRESS REPORT ---
Subjective Progress Note for:: 07/02/17 Subjective:: Patient is mildly hyperkalemic today. Oncology reports he would like to give her a unit of blood prior to dc. Patient reports she is feeling significantly better today than yesterday. She is not yet back to baseline. She reports she was able to walk about 300 feet today. Patient denies chest pain, abdominal pain, nausea, vomiting, fevers, chills, diarrhea, constipation, headache, new onset weakness. Physical Exam Vital Signs: Temp Pulse Resp BP Pulse Ox 97.9 F 100 16 130/62 H 95 07/02/17 14:22 07/02/17 14:22 07/02/17 14:22 07/02/17 14:22 07/02/17 14:10 Intake & Output 07/01/17 07/02/17 07/03/17 06:59 06:59 06:59 Intake Total 866 1580 360 Balance 866 1580 360 Weight 61.3 kg 62 kg Exam: General: Awake alert and oriented x3, no acute respiratory distress HEENT: AT/NC, PERRL, EOMI, oropharynx is moist, pink, no scleral icterus, no conjunctival injection, poor dentition Neck: No JVD, trachea midline Chest: Clear to auscultation bilaterally, prolonged expiratory phase CV: Regular rate and rhythm, normal S1 and S2, no rub or gallop; +3/6 SM apex Abdomen: Soft, nontender to palpation, nondistended, active bowel sounds; no rebound, rigidity, or guarding Extremities: No cyanosis or edema; mild clubbing Neuro: Cranial nerves II through XII are grossly intact without focal deficits; awake alert and oriented x3 Psych: Normal mood and affect Results Laboratory Results: 07/02/17 05:05 07/02/17 05:05 06/30/17 07/02/17 07/02/17 19:20 05:05 05:05 WBC 9.9 RBC 4.40 Hgb 8.8 L Hct 29.1 L MCV 66 L MCH 20.0 L MCHC 30.2 L RDW 17.5 H Plt Count 371 Seg Neutrophils % Not Reportable Lymphocytes % Not Reportable Monocytes % Not Reportable Eosinophils % Not Reportable Basophils % Not Reportable Absolute Neutrophils Not Reportable Absolute Lymphocytes Not Reportable Absolute Monocytes Not Reportable Absolute Eosinophils Not Reportable Absolute Basophils Not Reportable Sodium 140.4 Potassium 5.3 H Chloride 104 Carbon Dioxide 28 Anion Gap 8 BUN 25 H Creatinine 0.91 Est GFR ( Amer) > 60 Est GFR (Non-Af Amer) 59 L Glucose 300 H Calcium 9.4 Blood Type AB POSITIVE Antibody Screen NEGATIVE Impressions: Renal Ultrasound 06/30/17 00:00 IMPRESSION: 7 cm left renal upper pole mass. No evidence for urinary obstruction. Chest X-Ray 06/30/17 12:25 IMPRESSION: 1. Post treatment changes are again noted on the right. The multiple lung nodules seen on recent chest CT are not clearly visualized. No new abnormalities. Assessment & Plan - Diagnosis (1) Acute on chronic respiratory failure with hypoxemia Is this a current diagnosis for this admission?: Yes Plan: Continue oxygen to maintain saturation >93% Based on ambulatory saturation, patient will need home O2 Have consulted discharge planning (2) Acute exacerbation of chronic obstructive pulmonary disease (COPD) Is this a current diagnosis for this admission?: Yes Plan: Transition patient to prednisone scheduled nebulized treatments and prn treatments (3) Hematuria Qualifiers: Hematuria type: gross Qualified Code(s): R31.0 - Gross hematuria Is this a current diagnosis for this admission?: Yes Plan: Patient reports no further hematuria. This is likely secondary to her known kidney metastasis. Current culture is negative (4) Metastatic lung cancer (metastasis from lung to other site) Qualifiers: Laterality: right Qualified Code(s): C34.91 - Malignant neoplasm of unspecified part of right bronchus or lung Is this a current diagnosis for this admission?: Yes Plan: Appreciate input from her oncologist - Time Time Spent with patient: 25-34 minutes Medications reviewed and adjusted accordingly: Yes Anticipated discharge: Home with Homehealth Within: within 24 hours, within 48 hours - Inpatient Certification Based on my medical assessment, after consideration of the patient's comorbidities, presenting symptoms, or acuity I expect that the services needed warrant INPATIENT care.: Yes I certify that my determination is in accordance with my understanding of Medicare's requirements for reasonable and necessary INPATIENT services [42 CFR 412.3e].: Yes Medical Necessity: Need for Nebulizer Therapy and Monitoring of Response Post Hospital Care: D/C Supervisor Pumping Documentation
[2017-07-02 19:05] LABS: HEMATOCRIT 33.6 % (36.0-47.0); HEMOGLOBIN 10.2 g/dL (12.0-15.5); MEAN CORPUSCULAR HEMOGLOBIN 20.8 pg (27.0-33.4); MEAN CORPUSCULAR HGB CONC 30.3 g/dL (32.0-36.0); MEAN CORPUSCULAR VOLUME 69 fl (80-97); RED BLOOD COUNT 4.89 10^6/uL (3.72-5.28); RED CELL DISTRIBUTION WIDTH 18.8 % (11.5-14.0)
[2017-07-02 19:21] LABS: BASOPHILS % (MANUAL) 0 % (0-2); EOSINOPHILS % (MANUAL) 0 % (0-6); LYMPHOCYTES % (MANUAL) 3 % (13-45); TOTAL CELLS COUNTED 100
[2017-07-02 19:23] LABS: ANISOCYTOSIS 2+; HYPOCHROMASIA 1+; MICROCYTOSIS 2+; OVALOCYTES SLIGHT; POIKILOCYTOSIS 1+; TARGET CELLS SLIGHT; TOXIC GRANULATION SLIGHT
[2017-07-03 05:22] LABS: HEMATOCRIT 33.3 % (36.0-47.0); HEMOGLOBIN 10.1 g/dL (12.0-15.5); MEAN CORPUSCULAR HEMOGLOBIN 20.9 pg (27.0-33.4); MEAN CORPUSCULAR HGB CONC 30.4 g/dL (32.0-36.0); MEAN CORPUSCULAR VOLUME 69 fl (80-97); RED BLOOD COUNT 4.83 10^6/uL (3.72-5.28); RED CELL DISTRIBUTION WIDTH 18.8 % (11.5-14.0); WHITE BLOOD COUNT 10.6 10^3/uL (4.0-10.5)
[2017-07-03 05:26] LABS: ANION GAP 12 (5-19); BLOOD UREA NITROGEN 27 mg/dL (7-20); CALCIUM 9.1 mg/dL (8.4-10.2); CARBON DIOXIDE 29 mmol/L (22-30); CHLORIDE 103 mmol/L (98-107); CREATININE RESULT 0.86 mg/dL (0.52-1.25); GLUCOSE 190 mg/dL (75-110); POTASSIUM 4.5 mmol/L (3.6-5.0); SODIUM 143.9 mmol/L (137-145)
[2017-07-03 05:46] LABS: BASOPHILS % (MANUAL) 0 % (0-2); EOSINOPHILS % (MANUAL) 0 % (0-6); LYMPHOCYTES % (MANUAL) 6 % (13-45); TOTAL CELLS COUNTED 100
[2017-07-03 05:48] LABS: ANISOCYTOSIS 2+; HYPOCHROMASIA 1+; MICROCYTOSIS 2+; OVALOCYTES SLIGHT; POIKILOCYTOSIS 1+; ROULEAUX 1+; TARGET CELLS SLIGHT; TEAR DROP CELLS SLIGHT
[2017-07-03] MEDS: IPRATROPIUM/ALBUTEROL 0.5-2.5 MG/3 ML AMPUL NEB SCH (08:00)
[2017-07-03] MEDS: PREDNISONE 20 MG TABLET PO SCH (09:23)
[2017-07-03] MEDS: FAMOTIDINE 20 MG TABLET PO SCH (09:24)
[2017-07-03] MEDS: FERROUS SULFATE 325 MG TABLET PO SCH (09:24)
[2017-07-03] MEDS: LEVOFLOXACIN 500 MG/D5W RTU 500 MG/100 ML RTUPB IV SCH (09:26)
--- NOTE | 2017-07-03 10:49 | PDOC DISCHARGE SUMMARY ---
General - Admit/Disc Date/PCP Admission Date/Primary Care Provider: 06/30/17 16:15 Discharge Date: 07/03/17 - Discharge Diagnosis (1) Acute on chronic respiratory failure with hypoxemia Is this a current diagnosis for this admission?: Yes Summary: Patient was placed on breathing treatments, steroids, and antibiotics. Patient' s respiratory function improved. Patient will be going home with home oxygen. (2) Acute exacerbation of chronic obstructive pulmonary disease (COPD) Is this a current diagnosis for this admission?: Yes Summary: Patient was placed on steroids, antibiotics, and breathing treatments. Patient' s respiratory function has improved patient not wheezing but requiring O2. (3) Hematuria Is this a current diagnosis for this admission?: Yes Summary: Patient gave history of blood in urine at time of admission however during hospitalization patient had no episodes of blood in urine. (4) Iron deficiency anemia due to chronic blood loss Is this a current diagnosis for this admission?: Yes Summary: Patient was transfused 1 unit of packed RBCs. Patient has history of iron deficiency anemia however patient reports that she is allergic to IV iron. (5) Metastatic lung cancer (metastasis from lung to other site) Is this a current diagnosis for this admission?: Yes Summary: 81-year-old female with known history of stage IV lung cancer on OPDIVO. Patient will follow-up with oncologist as outpatient. - Additional Information Resuscitation Status: Do Not Resuscitate Discharge Diet: Regular, Cardiac, Diabetic Discharge Activity: Activity As Tolerated Home Medications: Albuterol Sulfate [Albuterol Sulfate 2.5mg/3 mL] 2.5 mg IH Q4HP PRN 06/30/17 Albuterol Sulfate [Proair HFA] 1 puff IH Q4HP PRN 06/30/17 Ferrous Sulfate [Feosol] 325 mg PO TID 06/30/17 Budesonide/Formoterol Fumarate [Symbicort Hfa 160-4.5 Mcg Inhaler 6 gm] 2 puff IH Q12 #1 inhaler 07/03/17 Levofloxacin [Levaquin 500 mg Tablet] 500 mg PO DAILY #7 tablet 07/03/17 Methylprednisolone [Medrol Dosepack (4 mg/Tab) 21 Tab/Dosepak] 21 tab PO ASDIR # 21 dspk 07/03/17 Tiotropium Knott [Spiriva Handihaler 18 mcg/dose (30 Dose)] 1 cap IH DAILY # 30 capsule 07/03/17 History of Present Illness Patient complains of: Shortness of breath History of Present Illness: RADHA PATTERSON is a 81 year old female Hospital Course Hospital Course: Patient is an 81-year-old female who presents to us to the emergency room with known history of stage IV lung cancer. Patient reports that she has been short of breath for several months. Patient was found to be hypoxic and was wheezing. Patient was placed on breathing treatment steroids and antibiotics and wheezing improved. Patient had reported that she had blood in her urine during this admission. Patient had a UA that did demonstrate blood however patient did not have any other episodes of blood in urine. This most likely will need to be followed as outpatient. Patient also was given 1 unit of packed RBCs due to history of iron deficiency anemia. Patient reports that she is allergic to IV iron. Patient has done well during hospitalization. Patient is requiring 2 L of nasal cannula at time of discharge. Physical Exam Vital Signs: Temp Pulse Resp BP Pulse Ox 97.9 F 98 16 156/81 H 95 07/03/17 07:17 07/03/17 08:00 07/03/17 08:00 07/03/17 07:17 07/03/17 08:00 Intake & Output 07/02/17 07/03/17 07/04/17 06:59 06:59 06:59 Intake Total 1580 1803 Balance 1580 1803 Weight 62 kg 63.2 kg General appearance: PRESENT: no acute distress, well-developed, well-nourished Head exam: PRESENT: atraumatic, normocephalic Eye exam: PRESENT: conjunctiva pink, EOMI, PERRLA. ABSENT: scleral icterus Ear exam: PRESENT: normal external ear exam Mouth exam: PRESENT: moist, tongue midline Neck exam: ABSENT: carotid bruit, JVD, lymphadenopathy, thyromegaly Respiratory exam: PRESENT: clear to auscultation eloisa Cardiovascular exam: PRESENT: RRR. ABSENT: diastolic murmur, rubs, systolic murmur Pulses: PRESENT: normal dorsalis pedis pul GI/Abdominal exam: PRESENT: normal bowel sounds, soft. ABSENT: distended, guarding, mass, organolmegaly, rebound, tenderness Musculoskeletal exam: PRESENT: ambulatory, full ROM Neurological exam: PRESENT: alert Psychiatric exam: PRESENT: appropriate affect, normal mood. ABSENT: homicidal ideation, suicidal ideation Skin exam: PRESENT: dry, intact, warm. ABSENT: cyanosis, rash Results Laboratory Results: 07/03/17 04:25 07/03/17 04:25 06/30/17 07/02/17 07/03/17 19:20 18:55 04:25 WBC 13.0 H 10.6 H RBC 4.89 4.83 Hgb 10.2 L 10.1 L Hct 33.6 L 33.3 L MCV 69 L 69 L MCH 20.8 L 20.9 L MCHC 30.3 L 30.4 L RDW 18.8 H 18.8 H Plt Count 418 348 Seg Neutrophils % Not Reportable Not Reportable Lymphocytes % Not Reportable Not Reportable Monocytes % Not Reportable Not Reportable Eosinophils % Not Reportable Not Reportable Basophils % Not Reportable Not Reportable Absolute Neutrophils Not Reportable Not Reportable Absolute Lymphocytes Not Reportable Not Reportable Absolute Monocytes Not Reportable Not Reportable Absolute Eosinophils Not Reportable Not Reportable Absolute Basophils Not Reportable Not Reportable Sodium Potassium Chloride Carbon Dioxide Anion Gap BUN Creatinine Est GFR ( Amer) Est GFR (Non-Af Amer) Glucose Calcium Blood Type AB POSITIVE Antibody Screen NEGATIVE 07/03/17 04:25 WBC RBC Hgb Hct MCV MCH MCHC RDW Plt Count Seg Neutrophils % Lymphocytes % Monocytes % Eosinophils % Basophils % Absolute Neutrophils Absolute Lymphocytes Absolute Monocytes Absolute Eosinophils Absolute Basophils Sodium 143.9 Potassium 4.5 Chloride 103 Carbon Dioxide 29 Anion Gap 12 BUN 27 H Creatinine 0.86 Est GFR ( Amer) > 60 Est GFR (Non-Af Amer) > 60 Glucose 190 H Calcium 9.1 Blood Type Antibody Screen Impressions: Renal Ultrasound 06/30/17 00:00 IMPRESSION: 7 cm left renal upper pole mass. No evidence for urinary obstruction. Chest X-Ray 06/30/17 12:25 IMPRESSION: 1. Post treatment changes are again noted on the right. The multiple lung nodules seen on recent chest CT are not clearly visualized. No new abnormalities. Qualifiers PATEINT BEING DISCHARGED WITH ANY OF THE FOLLOWING DIAGNOSIS?: No VTE patient discharged on overlapping Therapy?: Yes Plan Time Spent: Greater than 30 Minutes
[2017-07-03 11:22] VITALS: BP 139/76
== END 2017-07-03 12:04 | disposition home or self-care (01) | DRG 190 ==
LOC: ER 11:44 → UNDOADMIN 15:44 → EH 15:44 → 3W 17:43
PROVIDERS: ADMIT Family Medicine; ATTEND Family Medicine
PROC: 30233N1 Transfusion of Nonautologous Red Blood Cells into Peripheral Vein, Percutaneous Approach (ICD-10-PCS; principal; 2017-06-30)
DX: J44.1 Chronic obstructive pulmonary disease with (acute) exacerbation (principal); J96.01 Acute respiratory failure with hypoxia; C34.91 Malignant neoplasm of unspecified part of right bronchus or lung; C78.7 Secondary malignant neoplasm of liver and intrahepatic bile duct; D50.0 Iron deficiency anemia secondary to blood loss (chronic); I10 Essential (primary) hypertension; E11.9 Type 2 diabetes mellitus without complications; M19.90 Unspecified osteoarthritis, unspecified site; R31.9 Hematuria, unspecified; E87.5 Hyperkalemia; Z66 Do not resuscitate; Z90.49 Acquired absence of other specified parts of digestive tract; Z87.891 Personal history of nicotine dependence; Z88.8 Allergy status to other drugs, medicaments and biological substances; Z91.041 Radiographic dye allergy status
CPT/HCPCS: 36415; 36430; 51701; 71010; 76770; 80048; 80053; 81001; 83036; 83735; 85025; 85610; 86850; 86900; 86901; 86920; 87040; 87086; 93005; 93010; 94640; 99285; G8978-GP; G8979-GP; G8980-GP; J0696; J1956; J2930; J7030; J7512; J7620; P9016

== ENCOUNTER 2017-08-22 20:51 | Emergency (ER) | payer MEDICARE, BC ==
[2017-08-22 21:25] VITALS: BP 124/63
--- NOTE | 2017-08-22 21:31 | EKG REPORT ---
SEVERITY:- BORDERLINE ECG - SINUS TACHYCARDIA PROBABLE LEFT ATRIAL ABNORMALITY BORDERLINE ST ELEVATION, INFERIOR LEADS : Confirmed by: Valentino Harris MD 22-Aug-2017 21:30:31
[2017-08-22] MEDS ORDERED: ASPIRIN 81 MG TABLET, CHEWABLE PO ONE (21:55)
--- NOTE | 2017-08-22 21:59 | RADIOLOGY REPORT (SQ) ---
EXAM DESCRIPTION: CHEST PA/LAT COMPLETED DATE/TIME: 08/22/2017 9:42 pm REASON FOR STUDY: chest pain COMPARISON: 10/07/2016 EXAM PARAMETERS: NUMBER OF VIEWS: two views TECHNIQUE: Digital Frontal and Lateral radiographic views of the chest acquired. RADIATION DOSE: NA LIMITATIONS: none FINDINGS: LUNGS AND PLEURA: Increased nodularity in the right lung base with a 2 cm nodule, not seen on the prior study. Slightly increased nodularity in the right upper lobe with architectural distor tion. Similar nodularity in the left lung base. MEDIASTINUM AND HILAR STRUCTURES: Stable. HEART AND VASCULAR STRUCTURES: Stable. BONES: No acute findings. HARDWARE: Left chest port. OTHER: No other significant finding. IMPRESSION: Increased nodularity. TECHNICAL DOCUMENTATION: JOB ID: [id number] [employer]- All Rights Reserved
--- NOTE | 2017-08-22 22:01 | RADIOLOGY REPORT (SQ) ---
EXAM DESCRIPTION: KNEE RIGHT 4 VIEWS COMPLETED DATE/TIME: 08/22/2017 9:42 pm REASON FOR STUDY: fall with right knee pain COMPARISON: None. NUMBER OF VIEWS: Four views. TECHNIQUE: AP, lateral, and both oblique radiographic images acquired of the right knee. LIMITATIONS: None. FINDINGS: MINERALIZATION: Osteopenia. BONES: No acute fracture or dislocation. Moderate medial compartment arthrosis. . JOINT: Trace effusion. SOFT TISSUES: No significant soft tissue swelling. No radio-opaque foreign body. OTHER: No other significant finding. IMPRESSION: No fracture. TECHNICAL DOCUMENTATION: JOB ID: [id number] [employer]- All Rights Reserved
[2017-08-22 22:44] LABS: ALANINE AMINOTRANSFERASE 24 U/L (9-52); ALBUMIN 3.8 g/dL (3.5-5.0); ALKALINE PHOSPHATASE 101 U/L (38-126); ANION GAP 15 (5-19); ASPARTATE AMINO TRANSFERASE 12 U/L (14-36); BILIRUBIN,DIRECT 0.4 mg/dL (0.0-0.4); BILIRUBIN,TOTAL 0.5 mg/dL (0.2-1.3); BLOOD UREA NITROGEN 18 mg/dL (7-20); CALCIUM 10.1 mg/dL (8.4-10.2); CARBON DIOXIDE 28 mmol/L (22-30); CHLORIDE 101 mmol/L (98-107); CREATINE KINASE 42 U/L (30-135); CREATININE RESULT 1.04 mg/dL (0.52-1.25); GLUCOSE 113 mg/dL (75-110); SODIUM 143.9 mmol/L (137-145); TOTAL PROTEIN 6.9 g/dL (6.3-8.2)
[2017-08-22 22:53] LABS: ABSOLUTE EOSINOPHILS # (AUTO) 0.3 10^3/uL (0.0-0.6); ABSOLUTE NEUT (AUTO) 4.8 10^3/uL (1.7-8.2); BASOPHILS % (AUTO) 0.6 % (0-2); HEMATOCRIT 30.2 % (36.0-47.0); HEMOGLOBIN 9.2 g/dL (12.0-15.5); HGB HCT DIFFERENCE -2.6; LYMPHOCYTES % (AUTO) 14.1 % (13-45); MEAN CORPUSCULAR HEMOGLOBIN 19.6 pg (27.0-33.4); MEAN CORPUSCULAR HGB CONC 30.4 g/dL (32.0-36.0); MEAN CORPUSCULAR VOLUME 65 fl (80-97); MONOCYTES % (AUTO) 13.6 % (3-13); RED BLOOD COUNT 4.68 10^6/uL (3.72-5.28); RED CELL DISTRIBUTION WIDTH 19.2 % (11.5-14.0); SEGMENTED NEUTROPHILS % (AUTO) 67.7 % (42-78); WHITE BLOOD COUNT 7.1 10^3/uL (4.0-10.5)
[2017-08-22 22:54] LABS: CREATINE KINASE MB 0.48 ng/mL (<4.55); TROPONIN I < 0.012 ng/mL
[2017-08-22 23:58] LABS: ANISOCYTOSIS 2+; POLYCHROMASIA SLIGHT
[2017-08-22 23:59] LABS: MICROCYTOSIS 2+; OVALOCYTES SLIGHT; POIKILOCYTOSIS 1+
--- NOTE | 2017-08-23 00:42 | ER Document Report ---
ED General - General Chief Complaint: Chest Pain Stated Complaint: KNEE PAIN Time Seen by Provider: 08/23/17 00:31 Mode of Arrival: Ambulatory Information source: Patient Notes: 81-year-old female presents to the emergency room with right leg pain and chest wall pain after a fall today. Patient denies any significant chest pain with exertion or shortness of breath with exertion. She caught her leg on a chair this morning and fell over. She noticed a lot of knee pain at first and then later had some chest wall pain. She denies shortness of breath. She is does state that she has pain to the right knee when she ambulates. She denies any pain to the hip. TRAVEL OUTSIDE OF THE [place] IN LAST 30 DAYS: No - HPI Onset: This morning Onset/Duration: Gradual Quality of pain: Dull Severity: Moderate Pain Level: 2 Associated symptoms: Other - Chest wall pain. denies: Fever, Shortness of breath Exacerbated by: Denies Relieved by: Denies Similar symptoms previously: No Recently seen / treated by doctor: No - Similar symptoms - Related Data Allergies/Adverse Reactions: iron [Iron] Allergy (Severe, Verified 08/22/17 21:21) DIFFICULTY BREATHING WITH IV IRON Iodinated Contrast- Oral and IV Dye [Iodinated Contrast Media - Oral and] Adverse Reaction (Mild, Verified 08/22/17 21:21) metformin Adverse Reaction (Mild, Verified 08/22/17 21:21) carboplatin Adverse Reaction (Unknown, Verified 08/22/17 21:21) Past Medical History - General Information source: Patient - Social History Smoking Status: Never Smoker Cigarette use (# per day): No Chew tobacco use (# tins/day): No Frequency of alcohol use: None Drug Abuse: None Lives with: Family Family History: Reviewed & Not Pertinent Patient has suicidal ideation: No Patient has homicidal ideation: No - Past Medical History Cardiac Medical History: Reports: Hx Hypertension Denies: Hx Coronary Artery Disease, Hx Heart Attack Pulmonary Medical History: Reports: Hx COPD, Hx Pneumonia Denies: Hx Asthma, Hx Bronchitis Neurological Medical History: Denies: Hx Cerebrovascular Accident, Hx Seizures Endocrine Medical History: Reports: Hx Diabetes Mellitus Type 2 Renal/ Medical History: Denies: Hx Peritoneal Dialysis Malignancy Medical History: Reports: 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 Musculoskeltal Medical History: Reports Hx Arthritis - arms Past Surgical History: Reports: Hx Appendectomy, Hx Gynecologic Surgery - ectopic, Hx Orthopedic Surgery - left handed trigger finger - Immunizations Hx Diphtheria, Pertussis, Tetanus Vaccination: No Review of Systems - Review of Systems Constitutional: No symptoms reported EENT: No symptoms reported Cardiovascular: No symptoms reported Respiratory: No symptoms reported Gastrointestinal: No symptoms reported Genitourinary: No symptoms reported Female Genitourinary: No symptoms reported Musculoskeletal: See HPI Skin: No symptoms reported Hematologic/Lymphatic: No symptoms reported Neurological/Psychological: No symptoms reported Physical Exam - Vital signs Vitals: Temp Pulse Resp BP Pulse Ox 98.2 F 105 H 20 124/63 97 08/22/17 21:21 08/22/17 21:21 08/22/17 21:21 08/22/17 21:21 08/22/17 21:21 Notes: Physical exam: GENERAL: 81-year-old female, alert and oriented 3, no acute distress HEAD: Atraumatic, normocephalic. EYES: Pupils equal round and reactive to light, extraocular movements intact, sclera anicteric, conjunctiva are normal. ENT: TMs normal, nares patent, oropharynx clear without exudates. Moist mucous membranes. NECK: Normal range of motion, supple without obvious mass or JVD. LUNGS: Breath sounds clear to auscultation bilaterally and equal. No wheezes rales or rhonchi. chest wall: Left chest wall pain. HEART: Regular rate and rhythm without murmurs, rubs or gallops. ABDOMEN: Soft, normoactive bowel sounds. No tenderness to palpation. No guarding, no rebound. No masses appreciated. EXTREMITIES: Right knee swelling without deformity or crepitus. There is no erythema. Patient does have a range of motion. NEUROLOGICAL: Cranial nerves II through XII grossly intact. Normal speech, moving all extremities. PSYCH: Normal mood, normal affect. SKIN: Warm, Dry, normal turgor, no rashes or lesions noted. Course - Re-evaluation Re-evalutation: 08/23/17 04:16 Patient observed several hours. She did have some tenderness of the chest wall on the chest x-ray showed no evidence of rib fractures. Her lungs remained clear. We did check 2 sets of cardiac enzymes and those were normal. As far as her knee, there is no gross deformities on exam. The x-rays were negative. I did obtain a CT of the knee just to make sure there were no small fractures. There was significant arthritis. The plan will be for following up with the primary care doctor, possible physical therapy, following up with an orthopedic doctor. - Vital Signs Vital signs: Temp Pulse Resp BP Pulse Ox 98.2 F 105 H 20 124/63 97 08/22/17 21:21 08/22/17 21:21 08/22/17 21:21 08/22/17 21:21 08/22/17 21:21 - Laboratory Result Diagrams: 08/22/17 22:05 08/22/17 22:05 Laboratory results interpreted by me: 08/22/17 08/22/17 22:05 22:05 Hgb 9.2 L Hct 30.2 L MCV 65 L MCH 19.6 L MCHC 30.4 L RDW 19.2 H Plt Count 581 H Monocytes % 13.6 H Est GFR (Non-Af Amer) 51 L Glucose 113 H AST 12 L - Diagnostic Test Radiology reviewed: Image reviewed, Reports reviewed - CT of the right knee shows no fracture. There is significant arthritis. Chest x-ray shows no pulmonary contusions or rib fractures. - EKG Interpretation by Me Rate: Tachycardia Rhythm: NSR - EKG shows sinus tachycardia with a ventricular rate of 103, no acute ST-T wave changes. When comparing to previous EKG June 30, 2017, patient had sinus tachycardia at that time with a ventricular rate of 106 and the rhythm was normal. There is no changes with today's EKG. Discharge - Discharge Clinical Impression: Right knee contusion status post fall, Left rib contusion status post fall Condition: Stable Disposition: HOME, SELF-CARE Additional Instructions: As we discussed, the CT of the knee showed no fractures. There was significant arthritis. You can take some ibuprofen. I will prescribe some Percocet which you have had in the past. This is a narcotic, so you want to be very careful about falls. Do not drive when taking this medicine. I would like you to follow-up with the orthopedic surgeon: I left a number on the chart. In the meantime, you could consider a Rollator to help you ambulate. When picking up the medicines at [facility], they may have a knee brace which is a support brace for the knee. Follow-up with your primary care doctor. Prescriptions: Oxycodone HCl/Acetaminophen [Percocet 5-325 mg Tablet] 1 - 2 tab PO ASDIR PRN # 15 tablet PRN Reason:
--- NOTE | 2017-08-23 01:43 | RADIOLOGY REPORT (SQ) ---
EXAM DESCRIPTION: CT RT LOWER EXTREMITY WITHOUT COMPLETED DATE/TIME: 08/23/2017 1:29 am REASON FOR STUDY: right knee pain s/p fall COMPARISON: Plain radiographs TECHNIQUE: Axial imaging performed through the right knee with reformatted coronal and sagittal imag ing windowed for bone and soft tissues. Images saved to PACS. 3D IMAGING: Were 3D images as MIP, SSD, or volume rendering performed at the work station? Known All CT scanners at this facility use dose modulation, iterative reconstruction, and/or weight based d osing when appropriate to reduce radiation dose to as low as reasonably achievable (ALARA). [facility]: Dose Right [facility]: CareDose [facility]: Dose Right [facility]: Teradose 4D [facility]: [employer] LIMITATIONS: None. RADIATION DOSE: Up-to-date CT equipment and radiation dose reduction techniques were employed. CTDIv ol: 4.1 mGy. DLP: 99 mGy-cm. mGy. FINDINGS: SOFT TISSUES: No obvious swelling or foreign body. BONES: No acute fracture dislocation. Extensive 3 compartment osteoarthritis. MINERALIZATION: Normal. OTHER: No other significant finding. IMPRESSION: No acute fracture. Extensive 3 compartment osteoarthritis. TECHNICAL DOCUMENTATION: JOB ID: [id number] Quality ID # [id number]: Final reports with documentation of one or more dose reduction techniques (e.g., Au tomated exposure control, adjustment of the mA and/or kV according to patient size, use of iterative reconstruction technique) 2010 [employer]- All Rights Reserved
== END 2017-08-23 03:20 | disposition home or self-care (01) ==
LOC: ER 20:51
DX: S80.01XA Contusion of right knee, initial encounter (principal); S20.212A Contusion of left front wall of thorax, initial encounter; M79.604 Pain in right leg; W18.39XA Other fall on same level, initial encounter; I10 Essential (primary) hypertension; E11.9 Type 2 diabetes mellitus without complications; Z85.118 Personal history of other malignant neoplasm of bronchus and lung; Z85.05 Personal history of malignant neoplasm of liver; Z85.528 Personal history of other malignant neoplasm of kidney
CPT/HCPCS: 93005; 99285; 36415; 82553; 82550; 85025; 80053; 84484; 71020; 73564; 73700; 93010; A9270

== ENCOUNTER → 2017-10-04 | Outpatient (CLI) | payer BC, MEDICARE ==
--- NOTE | 2017-10-04 08:52 | RADIOLOGY REPORT (SQ) ---
EXAM DESCRIPTION: CT CHEST WITH; CT ABD/PELVIS WITH IV ONLY COMPLETED DATE/TIME: 10/04/2017 8:34 am REASON FOR STUDY: LUNG CA C34.11 MALIGNANT NEOPLASM OF UPPER LOBE, RIGHT BRONCHUS OR L CONTRAST TYPE AND DOSE: contrast/concentration: Isovue mg/ml; Total Contrast Delivered: 68.0 ml; To jaime Saline Delivered: 65.0 ml RENAL FUNCTION: Not available. COMPARISON: PET-CT 03/19/2017. CT chest, abdomen and pelvis on 06/25/2017. TECHNIQUE: CT scan of the chest performed using helical scanning technique with dynamic intravenous contrast injection. Images reviewed with lung, soft tissue and bone windows. Reconstructed coronal a nd sagittal MPR images reviewed. All images stored on PACS. All CT scanners at this facility use dose modulation, iterative reconstruction, and/or weight based d osing when appropriate to reduce radiation dose to as low as reasonably achievable (ALARA). [facility]: Dose Right [facility]: CareDose [facility]: Dose Right [facility]: Teradose 4D [facility]: [email or web address] RADIATION DOSE: CT Rad equipment meets quality standard of care and radiation dose reduction techniq ues were employed. CTDIvol: 5.4 - 6.1 mGy. DLP: 766 mGy-cm.. LIMITATIONS: None. FINDINGS: AXILLAE: No adenopathy. CHEST WALL: No masses. No subcutaneous air. LUNGS: Chronic consolidation, volume loss and distortion in the right upper lobe. Nonprogressive. S cattered pulmonary nodules nodules generally look progressive, increasing in size. Largest right les ion measures up to 2.7 cm maximally. Previously less than 2 cm. Large mass in the left lower lobe m easures 4.7 cm maximally, previously less than 3 cm. PLEURA: No effusions. No calcifications. THYROID: Stable mild enlargement. HILAR AND MEDIASTINAL STRUCTURES: No adenopathy. Small stable anterior epicardial nodes, subcentimet er. AORTA AND GREAT VESSELS: No aneurysm. No dissection. PULMONARY ARTERIES: No identified pulmonary emboli. Study not optimized for the pulmonary arteries. HEART: No pericardial effusion. HARDWARE AND LIFELINES: None. BONES: No significant finding. OTHER: No other significant finding. IMPRESSION: 1. Pulmonary nodules are increasing in size consistent with progression of disease. COMPARISON: As above. RADIATION DOSE: CT Rad equipment meets quality standard of care and radiation dose reduction techniq ues were employed. CTDIvol: 5.4 - 6.1 mGy. DLP: 766 mGy-cm.mGy. TECHNIQUE: CT scan of the abdomen and pelvis performed with intravenous and oral contrast using arya edson scanning technique with dynamic intravenous contrast injection. Images reviewed with lung, soft tissue and bone windows. Reconstructed coronal and sagittal MPR images reviewed. Delayed images for evaluation of the urinary system also acquired and evaluated. All images stored on PACS. All CT scanners at this facility use dose modulation, iterative reconstruction, and/or weight based d osing when appropriate to reduce radiation dose to as low as reasonably achievable (ALARA). [facility]: Dose Right [facility]: [employer] [facility]: Dose Right [facility]: Teradose 4D [facility]: [employer] FINDINGS: LIVER: Progressing left lobe liver lesions. Largest in the lateral segment is now all karen ost 7 cm transverse dimension. Previously just over 3 cm. SPLEEN: Normal size. No focal lesions. PANCREAS: No masses. No significant calcifications. No adjacent inflammation or peripancreatic flui d collections. Pancreatic duct not dilated. GALLBLADDER: No identified stones by CT criteria. No inflammatory changes to suggest cholecystitis. ADRENAL GLANDS: No significant masses or asymmetry. RIGHT KIDNEY AND URETER: No solid masses. No significant calcification. No hydronephrosis or hydroure ter. LEFT KIDNEY AND URETER: Mass replacing the upper 2/3 of the left kidney, as before. No developing ur inary obstruction. Adjacent retroperitoneal adenopathy also looks relatively chronic. AORTA AND VESSELS: Normal caliber aorta. No evidence of aneurysm or dissection or arterial occlusion . No venous clot detected. RETROPERITONEUM: As above. Nodes measure up to 1.5 cm in short axis. LARGE AND SMALL BOWEL: No dilatation. No masses. No wall thickening. APPENDIX: Normal. ABDOMINAL WALL: No hernia or masses. PERITONEAL CAVITY: No free air. No free fluid. No peritoneal implants or masses. PELVIS: No mass or free fluid. Normal bladder. BONES: No significant or acute findings. OTHER: No other significant finding. IMPRESSION: 1. Progressive liver metastatic disease. Lesions are larger. 2. Metastatic mass in th e left kidney with associated adenopathy, grossly stable. TECHNICAL DOCUMENTATION: JOB ID: [id number] Quality ID # [id number]: Final reports with documentation of one or more dose reduction techniques (e.g., Au tomated exposure control, adjustment of the mA and/or kV according to patient size, use of iterative reconstruction technique) 2010 [employer]- All Rights Reserved
== END ==
LOC: RAD 07:54
PROVIDERS: ATTEND Internal Medicine Hematology & Oncology
DX: C34.11 Malignant neoplasm of upper lobe, right bronchus or lung (principal)
CPT/HCPCS: 71260; 74177

== ENCOUNTER 2017-10-18 08:03 | Day surgery (SDC) | payer BC, MEDICARE ==
[2017-10-18 08:33] LABS: HEMATOCRIT 32.2 % (36.0-47.0); HEMOGLOBIN 9.5 g/dL (12.0-15.5); HGB HCT DIFFERENCE -3.7; MEAN CORPUSCULAR HGB CONC 29.5 g/dL (32.0-36.0); WHITE BLOOD COUNT 9.3 10^3/uL (4.0-10.5)
[2017-10-18 08:34] LABS: PROTHROMBIN TIME 15.5 SEC (11.4-15.4)
[2017-10-18 08:35] LABS: PARTIAL THROMBOPLASTIN TIME 36.7 SEC (23.5-35.8)
[2017-10-18 08:38] LABS: MEAN CORPUSCULAR VOLUME 64 fl (80-97)
[2017-10-18 08:51] LABS: BLOOD UREA NITROGEN 20 mg/dL (7-20); CREATININE RESULT 1.39 mg/dL (0.52-1.25)
[2017-10-18] MEDS ORDERED: FENTANYL CITRATE INJ/PF 100 MCG/2 ML AMPUL ONE (11:24)
[2017-10-18] MEDS ORDERED: MIDAZOLAM 2 MG/2 ML INJ ONE (11:24)
[2017-10-18 12:34] LABS: PATH REVIEW PATHOLOGIST REVIEWED
--- NOTE | 2017-10-18 14:12 | RADIOLOGY REPORT (SQ) ---
EXAM DESCRIPTION: CT BIOPSY LIVER; CT NEEDLE PLACEMENT COMPLETED DATE/TIME: 10/18/2017 12:42 pm REASON FOR STUDY: MALIGNANT NEOPLASM OF UPPER LOBE UNSPECIFIED BRONCHITIS OR LUNG C34.10 MALIGNANT NEOPLASM OF UPPER LOBE, UNSP BRONCHUS OR JAZLYN COMPARISON: CT chest abdomen and pelvis 10/04/2017 TECHNIQUE: After obtaining informed consent, the patient was brought to the CT suite and was placed supine on the CT gurney. The patient was prepped and draped in the usual sterile fashion . Axial maggie ges were obtained for targeting of themass in the left lobe liver, lateral to the falciform ligament. An appropriate access site was selected. IV sedation was administered and physician direction by the registered nurse using 1 milligrams of Versed and 75 micrograms of fentanyl. Physiologic monitoring was provided before, during, and after sedation. The total sedation time was 30 minutes. Documentation face to face time, the performing proceduralist, spent monitoring the patient: 30minute s. Noncontrasted CT of the liver was performed to localize an approach for the left lobe liver biopsy. A percutaneous site was marked. Time out was performed. After skin prep and local lidocaine for skin and deep tissue anesthesia, a coaxial biopsy needle sys tem was used to obtain several cores of tissue from the left lobe liver. These were submitted to the lab in formalin. Biopsy tract was embolized with a Gelfoam plug. No immediate postprocedure compli cations. Total of 6.[address] fluoro was used. All CT scanners at this facility use dose modulation, iterative reconstruction, and/or weight based d osing when appropriate to reduce radiation dose to as low as reasonably achievable (ALARA). [facility]: Dose Right [facility]: CareDose [facility]: Dose Right [facility]: Teradose 4D [facility]: [employer] RADIATION DOSE: CT Rad equipment meets quality standard of care and radiation dose reduction techniq ues were employed. CTDIvol: 10.5 mGy. DLP: 228 mGy-cm. mGy. LIMITATIONS: None. FINDINGS: CT guided liver biopsy as detailed above. IMPRESSION: CT GUIDED LEFT LOBE LIVER MASS BIOPSY PERFORMED ABOVE. PATHOLOGY PENDING. NO IMMED IATE COMPLICATIONS. COMMENT: Patient medication list reviewed:Yes- Quality ID# [id number]:Eligible professional attests to docu menting in the medical record they obtained, updated, or reviewed the patient's current medications.. Quality ID 145: Final reports for procedures using fluoroscopy that document radiation exposure abdullahi anderson, or exposure time and number of fluorographic images (if radiation exposure indices are not avail able) TECHNICAL DOCUMENTATION: JOB ID: [id number] Quality ID # [id number]: Final reports with documentation of one or more dose reduction techniques (e.g., A utomated exposure control, adjustment of the mA and/or kV according to patient size, use of iterative reconstruction technique) 2010 [email or web address] All Rights Reserved
[2017-10-18 14:43] VITALS: BP 105/54
== END 2017-10-18 14:40 | disposition home or self-care (01) ==
LOC: RAD 08:03
PROVIDERS: ATTEND Internal Medicine Hematology & Oncology
PROC: 0BBC3ZX Excision of Right Upper Lung Lobe, Percutaneous Approach, Diagnostic (ICD-10-PCS; principal; 2017-10-18)
DX: C34.10 Malignant neoplasm of upper lobe, unspecified bronchus or lung (principal); Z79.84 Long term (current) use of oral hypoglycemic drugs; Z79.899 Other long term (current) drug therapy
CPT/HCPCS: 36415; 82962; 84520; 82565; 85027; 85610; 85730; 88342 ×2; 88341 ×2; 88305 ×2; 77012; 47000; J2250; J3010

== ENCOUNTER 2017-10-29 18:40 | Inpatient (IN) | payer MEDICARE, BC ==
[2017-10-29] MEDS ORDERED: RINGERS SOLUTION,LACTATED 1,000 ML IV ONE (18:57)
[2017-10-29] MEDS ORDERED: ONDANSETRON HCL INJ/PF 4 MG/2 ML SDV IV ONE (18:57)
--- NOTE | 2017-10-29 19:09 | ER Document Report ---
ED Medical Screen (RME) - General Mode of Arrival: Ambulatory Information source: Patient TRAVEL OUTSIDE OF THE [place] IN LAST 30 DAYS: No <KHADAR BAKER - Last Filed: 10/29/17 19:02> <LA LERMA - Last Filed: 10/29/17 19:23> - General Chief Complaint: Weakness Stated Complaint: BODY WEAKNESS Time Seen by Provider: 10/29/17 18:47 Notes: Patient is an 82 year old female with metastatic Lung Cancer presents to the emergency department complaining of intermittent nausea and vomiting onset for 1 week and dehydration onset today. Daughter states a Home Health Aide states that her blood pressure and heart rate was high and that she appeared dehydrated. Daughter states the patient has had decreased fluid and food intake , although the patient states that she has been drinking appropriately. Patient states that she feels weak and he daughter states that she has been sleeping excessively lately. Patient denies diarrhea or abdominal pain. Patient states that she was on Phenegran for her nausea but the medication as been changed. I have greeted and performed a rapid initial assessment of this patient. A comprehensive ED assessment and evaluation of the patient, analysis of test results and completion of the medical decision making process will be conducted by additional ED providers. (KHADAR BAKER) - Related Data Allergies/Adverse Reactions: iron [Iron] Allergy (Severe, Verified 10/29/17 18:41) DIFFICULTY BREATHING WITH IV IRON metformin Adverse Reaction (Mild, Verified 10/29/17 18:41) carboplatin Adverse Reaction (Unknown, Verified 10/29/17 18:41) Past Medical History - Social History Chew tobacco use (# tins/day): No Frequency of alcohol use: None Drug Abuse: None - Past Medical History Cardiac Medical History: Denies: Hx Coronary Artery Disease, Hx Heart Attack, Hx Hypertension Pulmonary Medical History: Reports: Hx COPD Denies: Hx Asthma, Hx Bronchitis, Hx Pneumonia Neurological Medical History: Denies: Hx Cerebrovascular Accident, Hx Seizures Endocrine Medical History: Reports: Hx Diabetes Mellitus Type 2 Renal/ Medical History: Reports: Hx Peritoneal Dialysis Malignancy Medical History: Reports: 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 Musculoskeltal Medical History: Reports Hx Arthritis - All over.Mainly right knee Past Surgical History: Reports: Hx Appendectomy, Hx Gynecologic Surgery - ectopic, Hx Orthopedic Surgery - left handed trigger finger - Immunizations Hx Diphtheria, Pertussis, Tetanus Vaccination: No <KHADAR BAKER - Last Filed: 10/29/17 19:02> Physical Exam <KHADAR BAKER - Last Filed: 10/29/17 19:02> - Skin Skin Turgor: Loose <LA LERMA - Last Filed: 10/29/17 19:23> - Vital signs Vitals: Temp Pulse Resp BP Pulse Ox 99.0 F 109 H 20 126/110 H 95 10/29/17 18:46 10/29/17 18:46 10/29/17 18:46 10/29/17 18:46 10/29/17 18:46 - Notes Notes: GENERAL: Alert, interacts well. No acute distress. Cachetic. EENT: Oral mucosa is moist. LUNGS: Clear to auscultation bilaterally, no wheezes, rales, or rhonchi. No respiratory distress. HEART: Mild tachycardia. No murmurs, gallops, or rubs. ABDOMEN: Soft, non-tender. Non-distended. Bowel sounds present in all 4 quadrants. (KHADAR BAKER) - Vital Signs Vital signs: Temp Pulse Resp BP Pulse Ox 99.0 F 109 H 20 126/110 H 95 10/29/17 18:46 10/29/17 18:46 10/29/17 18:46 10/29/17 18:46 10/29/17 18:46 Scribe Documentation - Scribe Written by Cecile:: Cecile Castro, 10/29/2017 19:10 acting as scribe for :: Olivier <KHADAR BAKER - Last Filed: 10/29/17 19:02>
--- NOTE | 2017-10-29 19:34 | RADIOLOGY REPORT (SQ) ---
EXAM DESCRIPTION: CHEST PA/LAT COMPLETED DATE/TIME: 10/29/2017 7:12 pm REASON FOR STUDY: fatigue, metastatic cancer COMPARISON: 08/22/2017 EXAM PARAMETERS: NUMBER OF VIEWS: two views TECHNIQUE: Digital Frontal and Lateral radiographic views of the chest acquired. RADIATION DOSE: NA LIMITATIONS: none FINDINGS: LUNGS AND PLEURA: Increase prominence of right upper lobe mass and scattered pulmonary nod ules. No pleural effusion. No pneumothorax. MEDIASTINUM AND HILAR STRUCTURES: Stable. HEART AND VASCULAR STRUCTURES: Stable. BONES: No acute findings. HARDWARE: Left chest port stable. OTHER: No other significant finding. IMPRESSION: Mild increased pulmonary nodularity. No new consolidation or pleural effusion. TECHNICAL DOCUMENTATION: JOB ID: [id number] [place]-72 2010 [employer]- All Rights Reserved
--- NOTE | 2017-10-29 19:42 | ER Document Report ---
ED General - General Chief Complaint: Weakness Stated Complaint: BODY WEAKNESS Time Seen by Provider: 10/29/17 18:47 Mode of Arrival: Ambulatory Notes: Patient is an 82-year-old female with a history of metastatic lung cancer and COPD that comes emergency department for chief complaint of weakness, vomiting, and reduced eating and drinking for the past week. She states she has vomited once today, once yesterday. She states she is nauseated all the time. She was evaluated by her oncologist, placed on Compazine, she took 1 dose at 2 AM has not taken one since. She was on Phenergan before and this was not working. She denies fever or chills, abdominal pain, chest pain, difficulty breathing, passing out. She has not had chemotherapy since January, she is finding out in 2 weeks if she is beginning chemotherapy again. Daughter reports that home health aide states that she had an elevated heart rate and blood pressure and they were worried she is dehydrated. TRAVEL OUTSIDE OF THE [place] IN LAST 30 DAYS: No - Related Data Allergies/Adverse Reactions: iron [Iron] Allergy (Severe, Verified 10/29/17 18:41) DIFFICULTY BREATHING WITH IV IRON metformin Adverse Reaction (Mild, Verified 10/29/17 18:41) carboplatin Adverse Reaction (Unknown, Verified 10/29/17 18:41) Past Medical History - General Information source: Patient - Social History Smoking Status: Never Smoker Chew tobacco use (# tins/day): No Frequency of alcohol use: None Drug Abuse: None Lives with: Family Family History: Reviewed & Not Pertinent Patient has suicidal ideation: No Patient has homicidal ideation: No - Past Medical History Cardiac Medical History: Denies: Hx Coronary Artery Disease, Hx Heart Attack, Hx Hypertension Pulmonary Medical History: Reports: Hx COPD Denies: Hx Asthma, Hx Bronchitis, Hx Pneumonia Neurological Medical History: Denies: Hx Cerebrovascular Accident, Hx Seizures Endocrine Medical History: Reports: Hx Diabetes Mellitus Type 2 Renal/ Medical History: Reports: Hx Peritoneal Dialysis Malignancy Medical History: Reports: 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 Musculoskeltal Medical History: Reports Hx Arthritis - All over.Mainly right knee Past Surgical History: Reports: Hx Appendectomy, Hx Gynecologic Surgery - ectopic, Hx Orthopedic Surgery - left handed trigger finger - Immunizations Hx Diphtheria, Pertussis, Tetanus Vaccination: No Review of Systems - Review of Systems Constitutional: See HPI EENT: No symptoms reported Cardiovascular: No symptoms reported Respiratory: No symptoms reported Gastrointestinal: See HPI Genitourinary: No symptoms reported Female Genitourinary: No symptoms reported Musculoskeletal: No symptoms reported Skin: No symptoms reported Hematologic/Lymphatic: No symptoms reported Neurological/Psychological: No symptoms reported Physical Exam - Vital signs Vitals: Temp Pulse Resp BP Pulse Ox 99.0 F 109 H 20 126/110 H 95 10/29/17 18:46 10/29/17 18:46 10/29/17 18:46 10/29/17 18:46 10/29/17 18:46 Interpretation: Normal - General General appearance: Appears well, Alert In distress: None - HEENT Head: Normocephalic, Atraumatic Eyes: Normal Pupils: PERRL - Respiratory Respiratory status: No respiratory distress. No: Respiratory distress, Labored , Tachypnea Chest status: Nontender Breath sounds: Decreased air movement. No: Nonproductive cough, Productive cough, Wheezing Chest palpation: Normal - Cardiovascular Rhythm: Regular, Tachycardia Heart sounds: Normal auscultation, S1 appreciated, S2 appreciated Murmur: No - Abdominal Inspection: Normal Distension: No distension Bowel sounds: Normal Tenderness: Nontender. No: Tender, McBurney's point, Landeros's sign, Guarding - Back Back: Normal, Nontender. No: Tender - Extremities General upper extremity: Normal inspection, Nontender, Normal ROM, Normal strength General lower extremity: Normal inspection, Nontender, Normal ROM, Normal strength - Neurological Neuro grossly intact: Yes Cognition: Normal Orientation: AAOx4 Prabhu Coma Scale Eye Opening: Spontaneous Prabhu Coma Scale Verbal: Oriented Jenkins Coma Scale Motor: Obeys Commands Prabhu Coma Scale Total: 15 Speech: Normal Cranial nerves: Normal Cerebellar coordination: Normal Motor strength normal: LUE, RUE, LLE, RLE Sensory: Normal - Psychological Associated symptoms: Normal affect, Normal mood - Skin Skin Temperature: Warm Skin Moisture: Dry Skin Color: Normal Course - Re-evaluation Re-evalutation: EKG shows sinus tachycardia, borderline inferior ST elevation, less than 1 box, this unchanged from prior. No T-wave inversions in consecutive leads. Normal SC interval. QTC 414. No leukocytosis. Chronic anemia comparable to prior. Slightly worse renal functioning than prior but not significantly changed. Hypercalcemia noted at 13.5. Patient has a soft abdomen on examination. I suspect this is the cause of her nausea and general symptoms. Patient does not have any known bony metastases. Lactated Ringer's stopped (barely infused), patient given bolus of IV fluids normal saline. Patient given Zofran for nausea. Chest x-ray shows slight worsening nodularity. Discussed with Dr. Mederos, patient's oncologist. She states that patient had a recent scan and has lung metastases to the liver and kidneys but no bony metastases. Patient is not on any current chemotherapy or radiation. Recommendation is for patient to be admitted, given and IM dose of a bisphosphonate, given IV fluids. Discussed this with patient and family, they are in full agreement. Discussed with Dr. Helton, internal medicine, patient will be admitted to telemetry full admission. - Vital Signs Vital signs: Temp Pulse Resp BP Pulse Ox 98.0 F 92 16 117/58 L 96 10/30/17 03:24 10/30/17 03:24 10/30/17 03:24 10/30/17 03:24 10/30/17 03:24 - Laboratory Result Diagrams: 10/29/17 19:45 10/29/17 19:45 Laboratory results interpreted by me: 10/29/17 10/29/17 19:45 19:45 Hgb 9.1 L Hct 30.8 L MCV 64 L MCH 18.9 L MCHC 29.5 L RDW 18.0 H Plt Count 610 H Lymphocytes % 11.0 L Carbon Dioxide 31 H Creatinine 1.45 H Est GFR ( Amer) 42 L Est GFR (Non-Af Amer) 35 L Glucose 125 H Calcium 13.5 H* Discharge - Discharge Clinical Impression: Hypercalcemia, Weakness Nausea & vomiting Qualifiers: Vomiting type: unspecified Vomiting Intractability: non-intractable Qualified Code(s): R11.2 - Nausea with vomiting, unspecified Condition: Stable Disposition: ADMITTED INPATIENT Admitting Provider: Hospitalist Unit Admitted: Telemetry
[2017-10-29 20:12] LABS: ABSOLUTE BASOPHILS # (AUTO) 0.1 10^3/uL (0.0-0.2); ABSOLUTE EOSINOPHILS # (AUTO) 0.2 10^3/uL (0.0-0.6); ABSOLUTE LYMPHOCYTES (AUTO) 1.1 10^3/uL (0.5-4.7); ABSOLUTE MONOCYTES (AUTO) 1.2 10^3/uL (0.1-1.4); ABSOLUTE NEUT (AUTO) 7.4 10^3/uL (1.7-8.2); BASOPHILS % (AUTO) 0.5 % (0-2); EOSINOPHILS % (AUTO) 1.8 % (0-6); HEMATOCRIT 30.8 % (36.0-47.0); HEMOGLOBIN 9.1 g/dL (12.0-15.5); MEAN CORPUSCULAR HEMOGLOBIN 18.9 pg (27.0-33.4); MEAN CORPUSCULAR HGB CONC 29.5 g/dL (32.0-36.0); MONOCYTES % (AUTO) 12.5 % (3-13); PLATELET COUNT 610 10^3/uL (150-450); RED BLOOD COUNT 4.81 10^6/uL (3.72-5.28); SEGMENTED NEUTROPHILS % (AUTO) 74.2 % (42-78); TOTAL CELLS COUNTED % (AUTO) 100 %
[2017-10-29 20:23] LABS: MEAN CORPUSCULAR VOLUME 64 fl (80-97)
[2017-10-29 20:27] LABS: ALANINE AMINOTRANSFERASE 17 U/L (9-52); ALBUMIN 3.6 g/dL (3.5-5.0); ALKALINE PHOSPHATASE 102 U/L (38-126); ANION GAP 14 (5-19); ASPARTATE AMINO TRANSFERASE 14 U/L (14-36); BILIRUBIN,DIRECT 0.3 mg/dL (0.0-0.4); BILIRUBIN,TOTAL 0.4 mg/dL (0.2-1.3); BLOOD UREA NITROGEN 17 mg/dL (7-20); CARBON DIOXIDE 31 mmol/L (22-30); CHLORIDE 98 mmol/L (98-107); CREATINE KINASE 35 U/L (30-135); GLUCOSE 125 mg/dL (75-110); POTASSIUM 4.2 mmol/L (3.6-5.0); TOTAL PROTEIN 6.6 g/dL (6.3-8.2)
[2017-10-29 20:44] LABS: CREATINE KINASE MB < 0.22 ng/mL (<4.55); TROPONIN I < 0.012 ng/mL
[2017-10-29 20:45] LABS: CALCIUM 13.5 mg/dL (8.4-10.2)
[2017-10-29] MEDS ORDERED: NORMAL SALINE 1000 ML 1,000 ML IV ONE (20:48)
[2017-10-29 20:49] LABS: ANISOCYTOSIS 1+; BURR CELLS SLIGHT; POIKILOCYTOSIS 1+
[2017-10-29 20:50] LABS: OVALOCYTES 1+; PLATELET COMMENT INCREASED; TARGET CELLS SLIGHT
[2017-10-29 20:52] LABS: HYPOCHROMASIA SLIGHT
[2017-10-29] MEDS ORDERED: NORMAL SALINE 1000 ML 1,000 ML IV PRN (22:06)
[2017-10-29] MEDS ORDERED: PAMIDRONATE DISODIUM 90 MG in NORMAL SALINE 250 ML IV ONE (22:24)
[2017-10-29] MEDS ORDERED: MAGNESIUM HYDROXIDE SUSP 30 ML UDCUP PO PRN (22:25)
[2017-10-29] MEDS ORDERED: ACETAMINOPHEN 325 MG TABLET PO PRN (22:25)
[2017-10-29] MEDS ORDERED: MAG HYDROX/AL HYDROX/SIMETH SUSP 30 ML UDCUP PO PRN (22:25)
[2017-10-29] MEDS ORDERED: PROMETHAZINE HCL 25 MG TABLET PO PRN (22:28)
[2017-10-29] MEDS ORDERED: PAMIDRONATE DISODIUM INJ 30 MG/10 ML VIAL IV ONE (23:35)
[2017-10-30] MEDS: NORMAL SALINE 1000 ML 1,000 ML IV SCH ×3 (00:06→06:51)
[2017-10-30] MEDS: HEPARIN SOD (PORCINE) 5,000 UNIT/ML 1 ML SYRINGE SUBCUT SCH ×3 (05:08→21:31)
--- NOTE | 2017-10-30 05:40 | PDOC H&P ---
History of Present Illness Admission Date/PCP: 10/29/17 22:25 Patient complains of: Nausea and vomiting History of Present Illness: RADHA PATTERSON is a 82 year old female with a past medical history of COPD, stage IV lung cancer with metastases to liver and kidney without chemotherapy since January 2017. Presents with nausea and vomiting of gastric content and unable to tolerate p.o. Denying fever, shortness of breath, chest pain palpitations or diaphoresis. In the emergency room she is found to have a calcium of 13.5 and is referred to the hospitalist for admission. Patient admits minimal symptom control with both Phenergan and Compazine and denies new medication or significant constipation. Past Medical History Cardiac Medical History: Denies: Coronary Artery Disease, Myocardial Infarction, Hypertension Pulmonary Medical History: Reports: Chronic Obstructive Pulmonary Disease (COPD) Denies: Asthma, Bronchitis, Pneumonia Neurological Medical History: Denies: Seizures Endocrine Medical History: Reports: Diabetes Mellitus Type 2 Malignancy Medical History: Reports: Lung Cancer - with liver and kidney mets Musculoskeltal Medical History: Reports: Arthritis - All over.Mainly right knee Hematology: Denies: Anemia Past Surgical History Past Surgical History: Reports: Appendectomy, Orthopedic Surgery - left handed trigger finger Social History Lives with: Family Smoking Status: Never Smoker Frequency of Alcohol Use: None Hx Recreational Drug Use: No Drugs: None Hx Prescription Drug Abuse: No - Advance Directive Resuscitation Status: Full Code Family History Family History: Reviewed & Not Pertinent Parental Family History Reviewed: Yes Children Family History Reviewed: Yes Sibling(s) Family History Reviewed.: Yes Medication/Allergy Home Medications: Albuterol Sulfate [Albuterol Sulfate 2.5mg/3 mL] 2.5 mg IH Q4HP PRN 06/30/17 Albuterol Sulfate [Proair HFA] 1 puff IH Q4HP PRN 06/30/17 Budesonide/Formoterol Fumarate [Symbicort Hfa 160-4.5 Mcg Inhaler 6 gm] 2 puff IH Q12 #1 inhaler 07/03/17 Tiotropium [place] [Spiriva Handihaler 18 mcg/dose (30 Dose)] 1 cap IH DAILY # 30 capsule 07/03/17 Promethazine HCl [Phenergan 25 mg Tablet] 25 mg PO Q6 10/18/17 Allergies/Adverse Reactions: iron [Iron] Allergy (Severe, Verified 10/29/17 18:41) DIFFICULTY BREATHING WITH IV IRON metformin Adverse Reaction (Mild, Verified 10/29/17 18:41) carboplatin Adverse Reaction (Unknown, Verified 10/29/17 18:41) Review of Systems Constitutional: ABSENT: chills, fever(s), headache(s), weight gain, weight loss Eyes: ABSENT: visual disturbances Ears: ABSENT: hearing changes Cardiovascular: ABSENT: chest pain, dyspnea on exertion, edema, orthropnea, palpitations Respiratory: ABSENT: cough, hemoptysis Gastrointestinal: ABSENT: abdominal pain, constipation, diarrhea, hematemesis, hematochezia, nausea, vomiting Genitourinary: ABSENT: dysuria, hematuria Musculoskeletal: ABSENT: joint swelling Integumentary: ABSENT: rash, wounds Neurological: ABSENT: abnormal gait, abnormal speech, confusion, dizziness, focal weakness, syncope Psychiatric: ABSENT: anxiety, depression, homidical ideation, suicidal ideation Endocrine: ABSENT: cold intolerance, heat intolerance, polydipsia, polyuria Hematologic/Lymphatic: ABSENT: easy bleeding, easy bruising Physical Exam Vital Signs: Temp Pulse Resp BP Pulse Ox 98.0 F 92 16 117/58 L 96 10/30/17 03:24 10/30/17 03:24 10/30/17 03:24 10/30/17 03:24 10/30/17 03:24 General appearance: PRESENT: no acute distress, well-developed, well-nourished Head exam: PRESENT: atraumatic, normocephalic Eye exam: PRESENT: conjunctiva pink, EOMI, PERRLA. ABSENT: scleral icterus Ear exam: PRESENT: normal external ear exam Mouth exam: PRESENT: moist, tongue midline Neck exam: ABSENT: carotid bruit, JVD, lymphadenopathy, thyromegaly Respiratory exam: PRESENT: clear to auscultation eloisa. ABSENT: rales, rhonchi, wheezes Cardiovascular exam: PRESENT: RRR. ABSENT: diastolic murmur, rubs, systolic murmur Pulses: PRESENT: normal dorsalis pedis pul Vascular exam: PRESENT: normal capillary refill GI/Abdominal exam: PRESENT: normal bowel sounds, soft. ABSENT: distended, guarding, mass, organolmegaly, rebound, tenderness Rectal exam: PRESENT: deferred Extremities exam: PRESENT: full ROM. ABSENT: calf tenderness, clubbing, pedal edema Neurological exam: PRESENT: alert, awake, oriented to person, oriented to place , oriented to time, oriented to situation, CN II-XII grossly intact. ABSENT: motor sensory deficit Psychiatric exam: PRESENT: appropriate affect, normal mood. ABSENT: homicidal ideation, suicidal ideation Skin exam: PRESENT: dry, intact, warm. ABSENT: cyanosis, rash Results Impressions: Chest X-Ray 10/29/17 18:57 IMPRESSION: Mild increased pulmonary nodularity. No new consolidation or pleural effusion. Assessment & Plan - Diagnosis (1) Hypercalcemia Is this a current diagnosis for this admission?: Yes Plan: Secondary to malignancy, normal saline initiated, pamidronate ordered follow-up chemistry every 12 hours. Symptomatic management (2) Nausea & vomiting Qualifiers: Vomiting type: unspecified Vomiting Intractability: non-intractable Qualified Code(s): R11.2 - Nausea with vomiting, unspecified Is this a current diagnosis for this admission?: Yes Plan: Secondary to hypercalcemia, treatment as above and symptomatic management (3) Acute exacerbation of chronic obstructive pulmonary disease (COPD) Is this a current diagnosis for this admission?: Yes Plan: Albuterol and Atrovent, flutter valve and supplemental oxygen (4) Metastatic lung cancer (metastasis from lung to other site) Is this a current diagnosis for this admission?: Yes Plan: Oncology consultation (5) Anemia Is this a current diagnosis for this admission?: Yes Plan: Likely secondary to malignancy, anemia workup pending follow-up CBC - Time Time Spent: 50 to 70 Minutes - Inpatient Certification Medical Necessity: Need Close Monitoring Due to Risk of Patient Decompensation
[2017-10-30 06:10] LABS: ABSOLUTE EOSINOPHILS # (AUTO) 0.2 10^3/uL (0.0-0.6); ABSOLUTE MONOCYTES (AUTO) 1.2 10^3/uL (0.1-1.4); ABSOLUTE NEUT (AUTO) 5.1 10^3/uL (1.7-8.2); BASOPHILS % (AUTO) 0.5 % (0-2); EOSINOPHILS % (AUTO) 2.8 % (0-6); HEMATOCRIT 25.8 % (36.0-47.0); LYMPHOCYTES % (AUTO) 12.8 % (13-45); MEAN CORPUSCULAR HEMOGLOBIN 19.1 pg (27.0-33.4); MEAN CORPUSCULAR HGB CONC 29.7 g/dL (32.0-36.0); MEAN CORPUSCULAR VOLUME 64 fl (80-97); MONOCYTES % (AUTO) 16.3 % (3-13); PLATELET COUNT 549 10^3/uL (150-450); RED BLOOD COUNT 4.01 10^6/uL (3.72-5.28); RED CELL DISTRIBUTION WIDTH 17.6 % (11.5-14.0); SEGMENTED NEUTROPHILS % (AUTO) 67.6 % (42-78); TOTAL CELLS COUNTED % (AUTO) 100 %; WHITE BLOOD COUNT 7.6 10^3/uL (4.0-10.5)
[2017-10-30 06:32] LABS: ANION GAP 9 (5-19); BLOOD UREA NITROGEN 14 mg/dL (7-20); CALCIUM 11.7 mg/dL (8.4-10.2); CARBON DIOXIDE 28 mmol/L (22-30); CHLORIDE 104 mmol/L (98-107); GLUCOSE 111 mg/dL (75-110); POTASSIUM 4.2 mmol/L (3.6-5.0); SODIUM 140.7 mmol/L (137-145)
[2017-10-30 07:07] LABS: ABSOLUTE RETICS # 0.057 10^6/uL (0.028-0.122)
[2017-10-30 07:29] LABS: FOLATE 6.57 ng/mL (>2.76)
[2017-10-30 07:32] LABS: IRON(TIBC) < 10.1 ug/dL (37-170)
[2017-10-30] MEDS: IPRATROPIUM/ALBUTEROL 0.5-2.5 MG/3 ML AMPUL NEB SCH ×3 (07:48→20:31)
[2017-10-30 07:55] LABS: ANISOCYTOSIS 1+; HYPOCHROMASIA 2+; OVALOCYTES SLIGHT; POIKILOCYTOSIS 1+; TEAR DROP CELLS SLIGHT
[2017-10-30 07:56] LABS: PLATELET COMMENT INCREASED
--- NOTE | 2017-10-30 07:56 | EKG REPORT ---
SEVERITY:- ABNORMAL ECG - SINUS TACHYCARDIA RA ENLARGEMENT : Confirmed by: Valentino Harris MD 30-Oct-2017 07:55:34
[2017-10-30 07:57] LABS: HEMOGLOBIN 7.7 g/dL (12.0-15.5)
[2017-10-30] MEDS: DOCUSATE SODIUM 100 MG CAPSULE PO SCH ×2 (10:13→17:45)
--- NOTE | 2017-10-30 13:20 | PDOC PROGRESS REPORT ---
Subjective Reason For Visit: HYPERCALCEMIA NAUSEA VOMITING LUNG CA Physical Exam Vital Signs: Temp Pulse Resp BP Pulse Ox 99.3 F 90 18 107/59 L 100 10/30/17 11:37 10/30/17 11:37 10/30/17 11:37 10/30/17 11:37 10/30/17 11:37 Intake & Output 10/29/17 10/30/17 10/31/17 06:59 06:59 06:59 Intake Total 2719 Balance 2719 Weight 56.1 kg Results Laboratory Results: 10/30/17 04:45 10/30/17 04:45 10/30/17 10/30/17 10/30/17 04:45 04:45 04:45 WBC 7.6 RBC 4.01 Hgb 7.7 L Hct 25.8 L MCV 64 L MCH 19.1 L MCHC 29.7 L RDW 17.6 H Plt Count 549 H Seg Neutrophils % 67.6 Lymphocytes % 12.8 L Monocytes % 16.3 H Eosinophils % 2.8 Basophils % 0.5 Absolute Neutrophils 5.1 Absolute Lymphocytes 1.0 Absolute Monocytes 1.2 Absolute Eosinophils 0.2 Absolute Basophils 0.0 Retic Count (auto) 1.40 Absolute Retic 0.057 Sodium 140.7 Potassium 4.2 Chloride 104 Carbon Dioxide 28 Anion Gap 9 BUN 14 Creatinine 1.20 Est GFR ( Amer) 52 L Est GFR (Non-Af Amer) 43 L Glucose 111 H Calcium 11.7 H Iron TIBC % Saturation Ferritin Vitamin B12 Folate 10/30/17 04:45 WBC RBC Hgb Hct MCV MCH MCHC RDW Plt Count Seg Neutrophils % Lymphocytes % Monocytes % Eosinophils % Basophils % Absolute Neutrophils Absolute Lymphocytes Absolute Monocytes Absolute Eosinophils Absolute Basophils Retic Count (auto) Absolute Retic Sodium Potassium Chloride Carbon Dioxide Anion Gap BUN Creatinine Est GFR ( Amer) Est GFR (Non-Af Amer) Glucose Calcium Iron < 10.1 L TIBC 176 L % Saturation UNABLE TO CALCULATE Ferritin 300.00 H Vitamin B12 555.0 Folate 6.57 Impressions: Chest X-Ray 10/29/17 18:57 IMPRESSION: Mild increased pulmonary nodularity. No new consolidation or pleural effusion. Assessment & Plan - Diagnosis (1) Nausea & vomiting Qualifiers: Vomiting type: unspecified Vomiting Intractability: non-intractable Qualified Code(s): R11.2 - Nausea with vomiting, unspecified Is this a current diagnosis for this admission?: Yes Plan: Most likely has been related to the hypercalcemia. Has improved with IV fluids. (2) Hypercalcemia Is this a current diagnosis for this admission?: Yes Plan: Secondary to metastatic lung cancer. Patient has received pamidronate. We will continue with IV fluids. (3) Metastatic lung cancer (metastasis from lung to other site) Is this a current diagnosis for this admission?: Yes Plan: Patient is followed by oncology. (4) COPD (chronic obstructive pulmonary disease) Is this a current diagnosis for this admission?: Yes Plan: No evidence for wheezing on exam (5) Anemia Is this a current diagnosis for this admission?: Yes Plan: She is relatively asymptomatic with a hemoglobin of 7.7. Will repeat tomorrow and if her hemoglobin drops any further we will transfuse. - Time Time Spent with patient: 25-34 minutes - Inpatient Certification Medical Necessity: Need Close Monitoring Due to Risk of Patient Decompensation, Need For IV Fluids
[2017-10-30] MEDS ORDERED: NORMAL SALINE 250 ML IV PRN (16:49)
--- NOTE | 2017-10-30 16:51 | PDOC CONSULTATION ---
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 She is currently considering clinical trial. She presented to the ED with nausea and vomiting and was unable to tolerate p.o. She denied fever, shortness of breath, chest pain, palpitations or diaphoresis. In the emergency room she is found to have a calcium of 13.5 and was admitted for further treatment. She did receive 1 dose of Pamidronate last night. This morning, she states that she is feeling much better. Past Medical History Cardiac Medical History: Reports: Hypertension Denies: Coronary Artery Disease, Myocardial Infarction Pulmonary Medical History: Reports: Chronic Obstructive Pulmonary Disease (COPD) Denies: Asthma, Bronchitis, Pneumonia Neurological Medical History: Denies: Seizures Endocrine Medical History: Reports: Diabetes Mellitus Type 2 Malignancy Medical History: Reports: Lung Cancer - with liver and kidney mets Musculoskeltal Medical History: Reports: Arthritis - All over.Mainly right knee Hematology: Denies: Anemia Past Surgical History Past Surgical History: Reports: Appendectomy, Orthopedic Surgery - left handed trigger finger, Other - Ectopic , carpel Tunnel Social History Information Source: Patient Lives with: Alone, Other - Family is close by. She has 3 living children and 10 grandchildren. Smoking Status: Never Smoker Frequency of Alcohol Use: None Hx Recreational Drug Use: No Drugs: None Hx Prescription Drug Abuse: No - Advance Directive Resuscitation Status: Full Code Family History Family History: Other - Unknown. She was not raised with her biological family. Parental Family History Reviewed: No - Patient adopted. Children Family History Reviewed: No Sibling(s) Family History Reviewed.: No Medication/Allergy Home Medications: Albuterol Sulfate [Albuterol Sulfate 2.5mg/3 mL] 1 vial NEB QID 10/30/17 Albuterol Sulfate [Proair HFA Inhalation Aerosol 8.5 gm MDI] 2 puff PO Q4HP PRN 10/30/17 Budesonide/Formoterol Fumarate [Symbicort 160-4.5 Mcg Inhaler] 2 puff PO Q12 Lorazepam [Lorazepam Intensol] 2 mg PO Q4HP PRN 10/30/17 Ondansetron HCl [Zofran 4 mg Tablet] 1 tab PO Q8HP PRN 10/30/17 Prochlorperazine Maleate [Compazine 10 mg Tablet] 10 mg PO Q4HP PRN 10/30/17 Promethazine HCl [Phenergan 25 mg Tablet] 25 mg PO Q4HP PRN 10/30/17 Tiotropium [place] [Spiriva Handihaler 18 mcg/dose (30 Dose)] 1 dose PO DAILY Allergies/Adverse Reactions: iron [Iron] Allergy (Severe, Verified 10/29/17 18:41) DIFFICULTY BREATHING WITH IV IRON metformin Adverse Reaction (Mild, Verified 10/29/17 18:41) carboplatin Adverse Reaction (Unknown, Verified 10/29/17 18:41) Review of Systems Constitutional: PRESENT: anorexia, fatigue, weight gain, weight loss, other. ABSENT: chills, fever(s), headache(s), night sweats Eyes: ABSENT: visual disturbances Ears: ABSENT: hearing changes Cardiovascular: ABSENT: chest pain, palpitations Respiratory: ABSENT: cough, dyspnea Gastrointestinal: PRESENT: nausea, vomiting. ABSENT: constipation Genitourinary: ABSENT: dysuria Neurological: ABSENT: confusion, memory loss Psychiatric: ABSENT: anxiety Physical Exam Vital Signs: Temp Pulse Resp BP Pulse Ox 99.3 F 93 18 107/59 L 99 10/30/17 11:37 10/30/17 14:00 10/30/17 13:59 10/30/17 11:37 10/30/17 13:59 Intake & Output 10/29/17 10/30/17 10/31/17 06:59 06:59 06:59 Intake Total 2719 Balance 2719 Weight 56.1 kg General appearance: PRESENT: no acute distress, well-developed, well-nourished Exam: 82 year old female. Head exam: PRESENT: atraumatic Eye exam: PRESENT: PERRLA Mouth exam: PRESENT: moist, tongue midline Teeth exam: PRESENT: poor dentation Neck exam: ABSENT: lymphadenopathy, tenderness Respiratory exam: PRESENT: decreased breath sounds - Left side. Cardiovascular exam: PRESENT: RRR Pulses: PRESENT: normal dorsalis pedis pul GI/Abdominal exam: PRESENT: soft. ABSENT: tenderness Extremities exam: ABSENT: pedal edema Musculoskeletal exam: PRESENT: normal inspection Neurological exam: PRESENT: alert, awake, oriented to person, oriented to place , oriented to time, oriented to situation Psychiatric exam: PRESENT: appropriate affect Skin exam: PRESENT: normal color Results Laboratory Results: 10/30/17 04:45 10/30/17 04:45 10/30/17 10/30/17 10/30/17 04:45 04:45 04:45 WBC 7.6 RBC 4.01 Hgb 7.7 L Hct 25.8 L MCV 64 L MCH 19.1 L MCHC 29.7 L RDW 17.6 H Plt Count 549 H Seg Neutrophils % 67.6 Lymphocytes % 12.8 L Monocytes % 16.3 H Eosinophils % 2.8 Basophils % 0.5 Absolute Neutrophils 5.1 Absolute Lymphocytes 1.0 Absolute Monocytes 1.2 Absolute Eosinophils 0.2 Absolute Basophils 0.0 Retic Count (auto) 1.40 Absolute Retic 0.057 Sodium 140.7 Potassium 4.2 Chloride 104 Carbon Dioxide 28 Anion Gap 9 BUN 14 Creatinine 1.20 Est GFR ( Amer) 52 L Est GFR (Non-Af Amer) 43 L Glucose 111 H Calcium 11.7 H Iron TIBC % Saturation Ferritin Vitamin B12 Folate 10/30/17 04:45 WBC RBC Hgb Hct MCV MCH MCHC RDW Plt Count Seg Neutrophils % Lymphocytes % Monocytes % Eosinophils % Basophils % Absolute Neutrophils Absolute Lymphocytes Absolute Monocytes Absolute Eosinophils Absolute Basophils Retic Count (auto) Absolute Retic Sodium Potassium Chloride Carbon Dioxide Anion Gap BUN Creatinine Est GFR ( Amer) Est GFR (Non-Af Amer) Glucose Calcium Iron < 10.1 L TIBC 176 L % Saturation UNABLE TO CALCULATE Ferritin 300.00 H Vitamin B12 555.0 Folate 6.57 Impressions: Chest X-Ray 10/29/17 18:57 IMPRESSION: Mild increased pulmonary nodularity. No new consolidation or pleural effusion. Assessment & Plan - Diagnosis (1) Metastatic lung cancer (metastasis from lung to other site) Is this a current diagnosis for this admission?: Yes Plan: Further chemo being considered. Will follow for this as outpatient. (2) Hypercalcemia Is this a current diagnosis for this admission?: Yes Plan: Most likely due to the cancer. Much improved after pamidronate. (3) Anemia Qualifiers: Other causes of anemia: chronic disease, neoplastic Is this a current diagnosis for this admission?: Yes Plan: Currently feeling well despite anemia. Will repeat CBC today and transfuse if < 8.0 (4) Nausea & vomiting Qualifiers: Vomiting type: unspecified Vomiting Intractability: non-intractable Qualified Code(s): R11.2 - Nausea with vomiting, unspecified Is this a current diagnosis for this admission?: Yes Plan: Now much improved. Continue PRN meds. Consider reglan if needed. - Plan Summary Plan Summary: Thank you for the consultation. Please call with any concerns. I will continue to follow as outpatient.
[2017-10-30 19:48] LABS: HEMATOCRIT 27.2 % (36.0-47.0); MEAN CORPUSCULAR HEMOGLOBIN 18.6 pg (27.0-33.4); MEAN CORPUSCULAR HGB CONC 28.7 g/dL (32.0-36.0); PLATELET COUNT 458 10^3/uL (150-450); RED BLOOD COUNT 4.21 10^6/uL (3.72-5.28); RED CELL DISTRIBUTION WIDTH 17.9 % (11.5-14.0); WHITE BLOOD COUNT 7.2 10^3/uL (4.0-10.5)
[2017-10-30 20:27] LABS: ABSOLUTE LYMPHOCYTES# (MANUAL) 0.6 10^3/uL (0.5-4.7); ABSOLUTE MONOCYTES # (MANUAL) 1.1 10^3/uL (0.1-1.4); ABSOLUTE NEUTROPHILS# (MANUAL) 5.4 10^3/uL (1.7-8.2); BASOPHILS % (MANUAL) 1 % (0-2); EOSINOPHILS % (MANUAL) 1 % (0-6); LYMPHOCYTES % (MANUAL) 8 % (13-45); MONOCYTES % (MANUAL) 15 % (3-13); SEGMENTED NEUTROPHILS % (MAN) 75 % (42-78); TOTAL CELLS COUNTED 100
[2017-10-30 20:28] LABS: TOXIC VACUOLATION PRESENT
[2017-10-30 20:31] LABS: ANISOCYTOSIS 2+; OVALOCYTES 2+; POIKILOCYTOSIS 2+; POLYCHROMASIA SLIGHT
[2017-10-30 20:32] LABS: PLATELET COMMENT INCREASED
[2017-10-30 20:34] LABS: MEAN CORPUSCULAR VOLUME 65 fl (80-97)
[2017-10-30 20:37] LABS: HEMOGLOBIN 7.8 g/dL (12.0-15.5)
[2017-10-31 05:03] LABS: HEMATOCRIT 24.4 % (36.0-47.0); MEAN CORPUSCULAR HEMOGLOBIN 19.1 pg (27.0-33.4); MEAN CORPUSCULAR HGB CONC 29.8 g/dL (32.0-36.0); MEAN CORPUSCULAR VOLUME 64 fl (80-97); PLATELET COUNT 476 10^3/uL (150-450); RED CELL DISTRIBUTION WIDTH 17.6 % (11.5-14.0); WHITE BLOOD COUNT 5.9 10^3/uL (4.0-10.5)
[2017-10-31 05:43] LABS: ANION GAP 8 (5-19); BLOOD UREA NITROGEN 9 mg/dL (7-20); CALCIUM 10.9 mg/dL (8.4-10.2); CARBON DIOXIDE 26 mmol/L (22-30); CHLORIDE 107 mmol/L (98-107); GLUCOSE 94 mg/dL (75-110); POTASSIUM 3.8 mmol/L (3.6-5.0); SODIUM 141.3 mmol/L (137-145)
[2017-10-31 05:44] LABS: HEMOGLOBIN 7.3 g/dL (12.0-15.5)
[2017-10-31] MEDS: HEPARIN SOD (PORCINE) 5,000 UNIT/ML 1 ML SYRINGE SUBCUT SCH ×2 (06:55→15:45)
[2017-10-31 07:26] LABS: APPEARANCE,URINE SLIGHTLY-CLOUDY; BILIRUBIN,URINE NEGATIVE (NEGATIVE); COLOR,URINE YELLOW; GLUCOSE, URINE NEGATIVE (NEGATIVE); KETONES,URINE NEGATIVE (NEGATIVE); LEUKOCYTE ESTERASE,URINE TRACE (NEGATIVE); NITRITE,URINE NEGATIVE (NEGATIVE); PROTEIN,URINE 30 mg/dL (NEGATIVE); URINE SPECIFIC GRAVITY 1.018; UROBILINOGEN,URINE NEGATIVE mg/dL (<2.0)
[2017-10-31] MEDS: IPRATROPIUM/ALBUTEROL 0.5-2.5 MG/3 ML AMPUL NEB SCH ×3 (09:09→20:30)
[2017-10-31] MEDS: DOCUSATE SODIUM 100 MG CAPSULE PO SCH ×2 (09:44→18:32)
[2017-10-31] MEDS ORDERED: DIPHENOXYLATE HCL/ATROP SULF 2.5-0.025 MG TABLET PO PRN (09:59)
--- NOTE | 2017-10-31 16:11 | PDOC PROGRESS REPORT ---
Subjective Progress Note for:: 10/31/17 Subjective:: Denies any complaints Reason For Visit: HYPERCALCEMIA NAUSEA VOMITING LUNG CA Physical Exam Vital Signs: Temp Pulse Resp BP Pulse Ox 98.6 F 96 16 127/57 H 100 10/31/17 15:35 10/31/17 15:35 10/31/17 15:35 10/31/17 15:35 10/31/17 15:35 Intake & Output 10/30/17 10/31/17 11/01/17 06:59 06:59 06:59 Intake Total 2719 1390 700 Balance 2719 1390 700 Weight 56.1 kg General appearance: PRESENT: no acute distress Eye exam: PRESENT: conjunctiva pink. ABSENT: scleral icterus Mouth exam: PRESENT: moist, tongue midline Neck exam: ABSENT: JVD Respiratory exam: PRESENT: clear to auscultation eloisa. ABSENT: rales, rhonchi, wheezes Cardiovascular exam: PRESENT: RRR. ABSENT: diastolic murmur, rubs, systolic murmur GI/Abdominal exam: PRESENT: normal bowel sounds, soft. ABSENT: distended, guarding, mass, organolmegaly, rebound, tenderness Psychiatric exam: PRESENT: appropriate affect Skin exam: PRESENT: dry, intact, warm. ABSENT: cyanosis, rash Results Laboratory Results: 10/31/17 04:05 10/31/17 04:05 10/30/17 10/30/17 10/31/17 18:50 18:50 04:05 WBC 7.2 5.9 RBC 4.21 3.80 Hgb 7.8 L 7.3 L Hct 27.2 L 24.4 L MCV 65 L 64 L MCH 18.6 L 19.1 L MCHC 28.7 L 29.8 L RDW 17.9 H 17.6 H Plt Count 458 H 476 H Seg Neutrophils % Not Reportable Lymphocytes % Not Reportable Monocytes % Not Reportable Eosinophils % Not Reportable Basophils % Not Reportable Absolute Neutrophils Not Reportable Absolute Lymphocytes Not Reportable Absolute Monocytes Not Reportable Absolute Eosinophils Not Reportable Absolute Basophils Not Reportable Sodium Potassium Chloride Carbon Dioxide Anion Gap BUN Creatinine Est GFR ( Amer) Est GFR (Non-Af Amer) Glucose Calcium Urine Color Urine Appearance Urine pH Ur Specific [place] Urine Protein Urine Glucose (UA) Urine Ketones Urine Blood Urine Nitrite Ur Leukocyte Esterase Urine WBC (Auto) Urine RBC (Auto) Blood Type AB POSITIVE Antibody Screen POSITIVE 10/31/17 10/31/17 04:05 06:55 WBC RBC Hgb Hct MCV MCH MCHC RDW Plt Count Seg Neutrophils % Lymphocytes % Monocytes % Eosinophils % Basophils % Absolute Neutrophils Absolute Lymphocytes Absolute Monocytes Absolute Eosinophils Absolute Basophils Sodium 141.3 Potassium 3.8 Chloride 107 Carbon Dioxide 26 Anion Gap 8 BUN 9 Creatinine 0.85 Est GFR ( Amer) > 60 Est GFR (Non-Af Amer) > 60 Glucose 94 Calcium 10.9 H Urine Color YELLOW Urine Appearance SLIGHTLY-CLOUDY Urine pH 5.0 Ur Specific [place] 1.018 Urine Protein 30 H Urine Glucose (UA) NEGATIVE Urine Ketones NEGATIVE Urine Blood SMALL H Urine Nitrite NEGATIVE Ur Leukocyte Esterase TRACE H Urine WBC (Auto) 18 Urine RBC (Auto) 30 Blood Type Antibody Screen Impressions: Chest X-Ray 10/29/17 18:57 IMPRESSION: Mild increased pulmonary nodularity. No new consolidation or pleural effusion. Assessment & Plan - Diagnosis (1) Nausea & vomiting Qualifiers: Vomiting type: unspecified Vomiting Intractability: non-intractable Qualified Code(s): R11.2 - Nausea with vomiting, unspecified Is this a current diagnosis for this admission?: Yes Plan: Most likely has been related to the hypercalcemia. Has improved with IV fluids. (2) Hypercalcemia Is this a current diagnosis for this admission?: Yes Plan: Secondary to metastatic lung cancer. Patient has received pamidronate. We will continue with IV fluids. (3) Metastatic lung cancer (metastasis from lung to other site) Is this a current diagnosis for this admission?: Yes Plan: Patient is followed by oncology. (4) COPD (chronic obstructive pulmonary disease) Is this a current diagnosis for this admission?: Yes Plan: No evidence for wheezing on exam (5) Anemia Qualifiers: Other causes of anemia: chronic disease, neoplastic Is this a current diagnosis for this admission?: Yes Plan: The patient has received 2 units of packed red blood cells. We will watch overnight to make certain it does not drop after the transfusion and if it looks good we will send her home tomorrow morning. - Time Time Spent with patient: 15-24 minutes - Inpatient Certification Medical Necessity: Need Close Monitoring Due to Risk of Patient Decompensation
[2017-10-31 18:20] LABS: ABSOLUTE EOSINOPHILS # (AUTO) 0.2 10^3/uL (0.0-0.6); ABSOLUTE LYMPHOCYTES (AUTO) 0.8 10^3/uL (0.5-4.7); ABSOLUTE MONOCYTES (AUTO) 1.2 10^3/uL (0.1-1.4); ABSOLUTE NEUT (AUTO) 6.6 10^3/uL (1.7-8.2); BASOPHILS % (AUTO) 0.2 % (0-2); EOSINOPHILS % (AUTO) 2.5 % (0-6); HEMATOCRIT 31.2 % (36.0-47.0); LYMPHOCYTES % (AUTO) 8.9 % (13-45); MEAN CORPUSCULAR HEMOGLOBIN 20.9 pg (27.0-33.4); MEAN CORPUSCULAR HGB CONC 30.4 g/dL (32.0-36.0); MONOCYTES % (AUTO) 13.8 % (3-13); PLATELET COUNT 469 10^3/uL (150-450); RED BLOOD COUNT 4.54 10^6/uL (3.72-5.28); RED CELL DISTRIBUTION WIDTH 21.5 % (11.5-14.0); SEGMENTED NEUTROPHILS % (AUTO) 74.6 % (42-78); TOTAL CELLS COUNTED % (AUTO) 100 %; WHITE BLOOD COUNT 8.8 10^3/uL (4.0-10.5)
[2017-10-31 18:22] LABS: HEMOGLOBIN 9.5 g/dL (12.0-15.5)
[2017-10-31 18:23] LABS: MEAN CORPUSCULAR VOLUME 69 fl (80-97)
[2017-11-01] MEDS: HEPARIN SOD (PORCINE) 5,000 UNIT/ML 1 ML SYRINGE SUBCUT SCH ×2 (00:34→06:53)
[2017-11-01 04:52] LABS: ABSOLUTE BASOPHILS # (AUTO) 0.1 10^3/uL (0.0-0.2); ABSOLUTE EOSINOPHILS # (AUTO) 0.3 10^3/uL (0.0-0.6); ABSOLUTE LYMPHOCYTES (AUTO) 0.7 10^3/uL (0.5-4.7); ABSOLUTE MONOCYTES (AUTO) 1.1 10^3/uL (0.1-1.4); ABSOLUTE NEUT (AUTO) 4.8 10^3/uL (1.7-8.2); BASOPHILS % (AUTO) 0.9 % (0-2); EOSINOPHILS % (AUTO) 3.8 % (0-6); HEMATOCRIT 31.5 % (36.0-47.0); HEMOGLOBIN 9.5 g/dL (12.0-15.5); LYMPHOCYTES % (AUTO) 10.3 % (13-45); MEAN CORPUSCULAR HEMOGLOBIN 20.7 pg (27.0-33.4); MEAN CORPUSCULAR HGB CONC 30.3 g/dL (32.0-36.0); MEAN CORPUSCULAR VOLUME 68 fl (80-97); MONOCYTES % (AUTO) 15.6 % (3-13); PLATELET COUNT 419 10^3/uL (150-450); RED BLOOD COUNT 4.61 10^6/uL (3.72-5.28); RED CELL DISTRIBUTION WIDTH 21.2 % (11.5-14.0); SEGMENTED NEUTROPHILS % (AUTO) 69.4 % (42-78); TOTAL CELLS COUNTED % (AUTO) 100 %; WHITE BLOOD COUNT 6.9 10^3/uL (4.0-10.5)
[2017-11-01 05:09] LABS: ANION GAP 9 (5-19); BLOOD UREA NITROGEN 7 mg/dL (7-20); CARBON DIOXIDE 27 mmol/L (22-30); CHLORIDE 106 mmol/L (98-107); GLUCOSE 91 mg/dL (75-110); POTASSIUM 3.7 mmol/L (3.6-5.0); SODIUM 142.4 mmol/L (137-145)
[2017-11-01] MEDS: IPRATROPIUM/ALBUTEROL 0.5-2.5 MG/3 ML AMPUL NEB SCH (08:39)
[2017-11-01 08:50] VITALS: BP 127/57
--- NOTE | 2017-11-01 11:23 | PDOC DISCHARGE SUMMARY ---
General - Admit/Disc Date/PCP Admission Date/Primary Care Provider: 10/29/17 22:25 Discharge Date: 11/01/17 - Discharge Diagnosis (1) Nausea & vomiting Is this a current diagnosis for this admission?: Yes Summary: [place] most likely be secondary to the hypercalcemia (2) Hypercalcemia Is this a current diagnosis for this admission?: Yes Summary: Treated with IV fluids and pamidronate (3) Metastatic lung cancer (metastasis from lung to other site) Is this a current diagnosis for this admission?: Yes (4) COPD (chronic obstructive pulmonary disease) Is this a current diagnosis for this admission?: Yes (5) Anemia Is this a current diagnosis for this admission?: Yes Summary: Patient was transfused 2 units packed red blood cells. - Additional Information Resuscitation Status: Full Code Discharge Diet: Cardiac Discharge Activity: Activity As Tolerated Prescriptions: Diphenoxylate HCl/Atrop Sulf [Lomotil 2.5 mg Tablet] 1 tab PO QIDP PRN #20 tablet PRN Reason: Diarrhea Home Medications: Albuterol Sulfate [Albuterol Sulfate 2.5mg/3 mL] 1 vial NEB QID 10/30/17 Albuterol Sulfate [Proair HFA Inhalation Aerosol 8.5 gm MDI] 2 puff PO Q4HP PRN 10/30/17 Budesonide/Formoterol Fumarate [Symbicort 160-4.5 Mcg Inhaler] 2 puff PO Q12 Lorazepam [Lorazepam Intensol] 2 mg PO Q4HP PRN 10/30/17 Ondansetron HCl [Zofran 4 mg Tablet] 1 tab PO Q8HP PRN 10/30/17 Prochlorperazine Maleate [Compazine 10 mg Tablet] 10 mg PO Q4HP PRN 10/30/17 Promethazine HCl [Phenergan 25 mg Tablet] 25 mg PO Q4HP PRN 10/30/17 Tiotropium [place] [Spiriva Handihaler 18 mcg/dose (30 Dose)] 1 dose PO DAILY Diphenoxylate HCl/Atrop Sulf [Lomotil 2.5 mg Tablet] 1 tab PO QIDP PRN #20 tablet 11/01/17 History of Present Illness History of Present Illness: RADHA PATTERSON is a 82 year old female with a history of COPD, stage IV lung cancer that is metastatic to the liver and the kidneys who presents with nausea and vomiting. Patient did not have any fevers or chills or chest pain. Patient initially was found to have a calcium of 13.5 and is admitted for treatment of the nausea vomiting and hypercalcemia. Hospital Course Hospital Course: 82-year-old female with history of stage IV lung cancer who presented with nausea and vomiting and hypercalcemia. This was treated with IV fluids and she was given IV pamidronate. The patient's calcium returned to the normal level. Patient also had worsening anemia and she was given 2 units of packed red blood cells. She tolerated this without difficulties. On the day of discharge she was tolerating p.o. well and her calcium was normal and her red blood cell count had returned to acceptable range. Was felt that she was stable for discharge to home. Physical Exam Vital Signs: Temp Pulse Resp BP Pulse Ox 97.8 F 90 17 127/57 H 100 11/01/17 08:45 11/01/17 08:45 11/01/17 08:45 11/01/17 08:45 11/01/17 08:45 Intake & Output 10/31/17 11/01/17 11/02/17 06:59 06:59 06:59 Intake Total 1390 700 Balance 1390 700 Weight 56.1 kg General appearance: PRESENT: no acute distress Eye exam: PRESENT: conjunctiva pink. ABSENT: scleral icterus Mouth exam: PRESENT: moist, tongue midline Neck exam: ABSENT: JVD Respiratory exam: PRESENT: clear to auscultation eloisa. ABSENT: rales, rhonchi, wheezes Cardiovascular exam: PRESENT: RRR. ABSENT: diastolic murmur, rubs, systolic murmur GI/Abdominal exam: PRESENT: normal bowel sounds, soft. ABSENT: distended, guarding, mass, organolmegaly, rebound, tenderness Extremities exam: ABSENT: calf tenderness, clubbing, pedal edema Neurological exam: PRESENT: alert, awake, oriented to person, oriented to place , oriented to time, oriented to situation, CN II-XII grossly intact. ABSENT: motor sensory deficit Psychiatric exam: PRESENT: appropriate affect Skin exam: PRESENT: dry, intact, warm. ABSENT: cyanosis, rash Results Laboratory Results: 11/01/17 04:13 11/01/17 04:13 10/30/17 10/31/17 11/01/17 18:50 17:55 04:13 WBC 8.8 RBC 4.54 Hgb 9.5 L D Hct 31.2 L MCV 69 L D MCH 20.9 L MCHC 30.4 L RDW 21.5 H Plt Count 469 H Seg Neutrophils % 74.6 Lymphocytes % 8.9 L Monocytes % 13.8 H Eosinophils % 2.5 Basophils % 0.2 Absolute Neutrophils 6.6 Absolute Lymphocytes 0.8 Absolute Monocytes 1.2 Absolute Eosinophils 0.2 Absolute Basophils 0.0 Sodium 142.4 Potassium 3.7 Chloride 106 Carbon Dioxide 27 Anion Gap 9 BUN 7 Creatinine 0.87 Est GFR ( Amer) > 60 Est GFR (Non-Af Amer) > 60 Glucose 91 Calcium 10.0 Blood Type AB POSITIVE Antibody Screen POSITIVE 11/01/17 04:13 WBC 6.9 RBC 4.61 Hgb 9.5 L Hct 31.5 L MCV 68 L MCH 20.7 L MCHC 30.3 L RDW 21.2 H Plt Count 419 Seg Neutrophils % 69.4 Lymphocytes % 10.3 L Monocytes % 15.6 H Eosinophils % 3.8 Basophils % 0.9 Absolute Neutrophils 4.8 Absolute Lymphocytes 0.7 Absolute Monocytes 1.1 Absolute Eosinophils 0.3 Absolute Basophils 0.1 Sodium Potassium Chloride Carbon Dioxide Anion Gap BUN Creatinine Est GFR ( Amer) Est GFR (Non-Af Amer) Glucose Calcium Blood Type Antibody Screen Impressions: Chest X-Ray 10/29/17 18:57 IMPRESSION: Mild increased pulmonary nodularity. No new consolidation or pleural effusion. Qualifiers PATEINT BEING DISCHARGED WITH ANY OF THE FOLLOWING DIAGNOSIS?: No Plan Discharge Plan: Patient is discharged to home in stable condition. Follow up with her oncologist in 1-2 weeks. Time Spent: Greater than 30 Minutes
[2017-11-02 10:59] LABS: PATH REVIEW PATHOLOGIST REVIEWED
== END 2017-11-01 10:15 | disposition home or self-care (01) | DRG 641 ==
LOC: ER 18:40 → EH 22:25 → 5 10-30 00:52
PROVIDERS: ADMIT Internal Medicine; ATTEND Internal Medicine
PROC: 30233N1 Transfusion of Nonautologous Red Blood Cells into Peripheral Vein, Percutaneous Approach (ICD-10-PCS; principal; 2017-10-31)
DX: E83.52 Hypercalcemia (principal); J44.1 Chronic obstructive pulmonary disease with (acute) exacerbation; C34.90 Malignant neoplasm of unspecified part of unspecified bronchus or lung; C78.7 Secondary malignant neoplasm of liver and intrahepatic bile duct; C79.00 Secondary malignant neoplasm of unspecified kidney and renal pelvis; E86.0 Dehydration; E11.9 Type 2 diabetes mellitus without complications; D63.0 Anemia in neoplastic disease; I10 Essential (primary) hypertension; R53.1 Weakness; Z60.2 Problems related to living alone; Z79.51 Long term (current) use of inhaled steroids; Z79.899 Other long term (current) drug therapy
CPT/HCPCS: 36415; 36430; 36591; 71020; 80048; 80053; 81001; 82550; 82553; 82607; 82728; 82746; 83540; 83550; 84484; 85025; 85027; 85045; 86850; 86870; 86900; 86901; 86902; 86920; 86922; 93005; 93010; 94640; 96361; 96365; 96375; 99285; J1644; J2405; J2430; J3490; J7030; J7050; J7120; J7620; P9016

== ENCOUNTER 2017-11-02 23:07 | Emergency (ER) | payer MEDICARE, BC ==
[2017-11-02] MEDS ORDERED: FUROSEMIDE INJ/PF 40 MG/4 ML SDV IV ONE (23:22)
--- NOTE | 2017-11-02 23:27 | ER Document Report ---
ED Respiratory Problem - General Chief Complaint: Breathing Difficulty Stated Complaint: DIFFICULTY BREATHING Time Seen by Provider: 11/02/17 23:16 Mode of Arrival: Stretcher Information source: Patient Notes: 82 years old female with a history of lung cancer with metastatic disease throughout the whole body including liver and liver and kidneys. Discharge from the hospital yesterday. She was brought in back because she woke up with difficulty in breathing. She was given blood transfusion prior to discharge from the hospital. Total of 2 units. She also was treated for hypercalcemia. Pleasant female denies any chest pain. Denies any constitutional symptoms. She expressed the wish of being DO NOT RESUSCITATE. In front of the relative as well as nurses. TRAVEL OUTSIDE OF THE [place] IN LAST 30 DAYS: No - Related Data Allergies/Adverse Reactions: iron [Iron] Allergy (Severe, Verified 10/29/17 18:41) DIFFICULTY BREATHING WITH IV IRON metformin Adverse Reaction (Mild, Verified 10/29/17 18:41) carboplatin Adverse Reaction (Unknown, Verified 10/29/17 18:41) Past Medical History - Social History Smoking Status: Former Smoker Family History: Hypertension, Malignancy, Other - Unknown. She was not raised with her biological family. - Past Medical History Cardiac Medical History: Reports: Hx Hypertension Denies: Hx Coronary Artery Disease, Hx Heart Attack Pulmonary Medical History: Reports: Hx COPD Denies: Hx Asthma, Hx Bronchitis, Hx Pneumonia Neurological Medical History: Denies: Hx Cerebrovascular Accident, Hx Seizures Endocrine Medical History: Reports: Hx Diabetes Mellitus Type 2 Renal/ Medical History: Reports: Hx Peritoneal Dialysis Malignancy Medical History: Reports: 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 Musculoskeltal Medical History: Reports Hx Arthritis - All over.Mainly right knee Past Surgical History: Reports: Hx Appendectomy, Hx Gynecologic Surgery - ectopic, Hx Orthopedic Surgery - left handed trigger finger, Other - Ectopic , carpel Tunnel - Immunizations Hx Diphtheria, Pertussis, Tetanus Vaccination: No Review of Systems - Review of Systems Notes: REVIEW OF SYSTEMS: CONSTITUTIONAL : Denies fever, chills, or sweats. Denies recent illness. EENT: Denies eye, ear, throat, or mouth pain or symptoms. Denies nasal or sinus congestion or discharge. Denies throat, tongue, or mouth swelling or difficulty swallowing. CARDIOVASCULAR: Denies chest pain. Denies palpitations or racing or irregular heart beat. Denies ankle edema. RESPIRATORY: As per history of complain GASTROINTESTINAL: Denies abdominal pain or distention. Denies nausea, vomiting , or diarrhea. Denies blood in vomitus, stools, or per rectum. Denies black, tarry stools. Denies constipation. GENITOURINARY: Denies difficulty urinating, painful urination, burning, frequency, blood in urine, or discharge. FEMALE GENITOURINARY: Denies vaginal bleeding, heavy or abnormal periods, irregular periods. Denies vaginal discharge or odor. MUSCULOSKELETAL: Denies back or neck pain or stiffness. Denies joint pain or swelling. SKIN: Denies rash, lesions or sores. HEMATOLOGIC : Denies easy bruising or bleeding. LYMPHATIC: Denies swollen, enlarged glands. NEUROLOGICAL: Denies confusion or altered mental status. Denies passing out or loss of consciousness. Denies dizziness or lightheadedness. Denies headache. Denies weakness or paralysis or loss of use of either side. Denies problems with gait or speech. Denies sensory loss, numbness, or tingling. Denies seizures. PSYCHIATRIC: Denies anxiety or stress. Denies depression, suicidal ideation, or homicidal ideation. ALL OTHER SYSTEMS REVIEWED AND NEGATIVE. PHYSICAL EXAMINATION: GENERAL: Cachexia of malignancy, mild to moderate respiratory distress HEAD: Atraumatic, normocephalic. EYES: Pupils equal round and reactive to light, extraocular movements intact, conjunctiva are normal. ENT: Nares patent, oropharynx clear without exudates. Moist mucous membranes. NECK: Normal range of motion, supple without lymphadenopathy LUNGS: Bilaterally diffuse inspiratory rales throughout the lung field. HEART: Regular rate and rhythm without murmurs ABDOMEN: Soft, nontender, nondistended abdomen. No guarding, no rebound. No masses appreciated. Female : deferred Musculoskeletal: Normal range of motion, no pitting or edema. No cyanosis. NEUROLOGICAL: Cranial nerves grossly intact. Normal speech, normal gait. Normal sensory, motor exams PSYCH: Normal mood, normal affect. SKIN: Warm, Dry, normal turgor, no rashes or lesions noted. Dictation was performed using [employer] recognition software Physical Exam - Vital signs Vitals: Pulse Ox 99 11/02/17 23:10 Course - Re-evaluation Re-evalutation: 11/03/17 00:42 She was given Lasix 40 mg, she has urinated a significant amount, currently feeling comfortable and laying down sleeping. - Vital Signs Vital signs: Temp Pulse Resp BP Pulse Ox 40 H 119/59 L 98 11/03/17 00:07 11/03/17 00:07 11/03/17 00:07 - Laboratory Result Diagrams: 11/02/17 23:25 11/02/17 23:25 Laboratory results interpreted by me: 11/02/17 11/02/17 11/02/17 23:25 23:25 23:25 RBC 5.36 H Hgb 11.1 L MCV 69 L MCH 20.6 L MCHC 30.1 L RDW 22.1 H Plt Count 482 H Monocytes % 15.9 H Absolute Monocytes 1.5 H Potassium 3.4 L NT-Pro-B Natriuret Pep 1110 H Total Protein 6.0 L Albumin 3.1 L Discharge - Discharge Clinical Impression: Hypoxia Acute congestive heart failure Qualifiers: Congestive heart failure type: systolic Qualified Code(s): I50.21 - Acute systolic (congestive) heart failure Metastatic lung cancer (metastasis from lung to other site) Qualifiers: Laterality: right Qualified Code(s): C34.91 - Malignant neoplasm of unspecified part of right bronchus or lung Condition: Fair Disposition: HOME, SELF-CARE
[2017-11-02 23:43] LABS: ABSOLUTE EOSINOPHILS # (AUTO) 0.2 10^3/uL (0.0-0.6); ABSOLUTE LYMPHOCYTES (AUTO) 1.8 10^3/uL (0.5-4.7); ABSOLUTE MONOCYTES (AUTO) 1.5 10^3/uL (0.1-1.4); ABSOLUTE NEUT (AUTO) 5.7 10^3/uL (1.7-8.2); BASOPHILS % (AUTO) 0.3 % (0-2); EOSINOPHILS % (AUTO) 2.7 % (0-6); HEMATOCRIT 36.7 % (36.0-47.0); HEMOGLOBIN 11.1 g/dL (12.0-15.5); LYMPHOCYTES % (AUTO) 19.3 % (13-45); MEAN CORPUSCULAR HEMOGLOBIN 20.6 pg (27.0-33.4); MEAN CORPUSCULAR HGB CONC 30.1 g/dL (32.0-36.0); MEAN CORPUSCULAR VOLUME 69 fl (80-97); MONOCYTES % (AUTO) 15.9 % (3-13); PLATELET COUNT 482 10^3/uL (150-450); RED BLOOD COUNT 5.36 10^6/uL (3.72-5.28); RED CELL DISTRIBUTION WIDTH 22.1 % (11.5-14.0); SEGMENTED NEUTROPHILS % (AUTO) 61.8 % (42-78); TOTAL CELLS COUNTED % (AUTO) 100 %; VENOUS BLOOD BASE EXCESS 4.4 mmol/L; VENOUS BLOOD HCO3 31.6 mmol/L (20-32); VENOUS BLOOD PH 7.34 (7.30-7.42); WHITE BLOOD COUNT 9.3 10^3/uL (4.0-10.5)
--- NOTE | 2017-11-02 23:51 | RADIOLOGY REPORT (SQ) ---
EXAM DESCRIPTION: CHEST SINGLE VIEW COMPLETED DATE/TIME: 11/02/2017 11:23 pm REASON FOR STUDY: SOB COMPARISON: 10/29/2017 EXAM PARAMETERS: NUMBER OF VIEWS: One view. TECHNIQUE: Single frontal radiographic view of the chest acquired. RADIATION DOSE: NA LIMITATIONS: None. FINDINGS: LUNGS AND PLEURA: Slightly increased consolidation in the right upper lobe. Similar bilat eral pulmonary nodularity. No pneumothorax or significant pleural effusion. MEDIASTINUM AND HILAR STRUCTURES: Stable. HEART AND VASCULAR STRUCTURES: Stable. BONES: No acute findings. HARDWARE: Left chest port. OTHER: No other significant finding. IMPRESSION: Slightly increased consolidation in the right upper lobe. Similar bilateral pulmonary n odularity. TECHNICAL DOCUMENTATION: JOB ID: [id number] [id number] 2010 [employer]- All Rights Reserved
[2017-11-02 23:54] LABS: ALANINE AMINOTRANSFERASE 20 U/L (9-52); ALBUMIN 3.1 g/dL (3.5-5.0); ALKALINE PHOSPHATASE 91 U/L (38-126); ANION GAP 11 (5-19); ASPARTATE AMINO TRANSFERASE 14 U/L (14-36); BILIRUBIN,DIRECT 0.2 mg/dL (0.0-0.4); BILIRUBIN,TOTAL 0.3 mg/dL (0.2-1.3); BLOOD UREA NITROGEN 8 mg/dL (7-20); CALCIUM 9.8 mg/dL (8.4-10.2); CARBON DIOXIDE 30 mmol/L (22-30); CHLORIDE 103 mmol/L (98-107); CREATINE KINASE 46 U/L (30-135); GLUCOSE 110 mg/dL (75-110); POTASSIUM 3.4 mmol/L (3.6-5.0); SODIUM 143.5 mmol/L (137-145)
[2017-11-03 00:16] LABS: NT PRO BNP 1110 pg/mL (<450)
[2017-11-03 00:17] LABS: CREATINE KINASE MB < 0.22 ng/mL (<4.55); TROPONIN I < 0.012 ng/mL
[2017-11-03 03:27] VITALS: BP 101/55
--- NOTE | 2017-11-04 07:59 | EKG REPORT ---
SEVERITY:- OTHERWISE NORMAL ECG - SINUS TACHYCARDIA : Confirmed by: Jolie Richards MD 04-Nov-2017 07:58:05
== END 2017-11-03 03:35 | disposition home or self-care (01) ==
LOC: ER 23:07 → UNDOADMOB 11-03 00:52 → EH 11-03 00:52 → ER 11-03 03:35
DX: R09.02 Hypoxemia (principal); I50.21 Acute systolic (congestive) heart failure; C34.91 Malignant neoplasm of unspecified part of right bronchus or lung; R06.02 Shortness of breath
CPT/HCPCS: 93005; 99284; 96374; 36415; 87040; 82553; 82550; 85025; 80053; 84484; 82803; 83880; 71010; 93010; J1940